=== PATIENT | female | born 1995 | race Caucasian/White ===

== ENCOUNTER 2022-04-25 21:00 | Inpatient (IN) ==
--- NOTE | 2022-04-25 21:09 | Emergency Department Note ---
Impression & Plan Right peroneal nerve palsy, Back pain, Foot drop, right ED Provider Note NAME: LORA WALDEN AGE: 26 SEX: F : 1995 ARRIVES VIA: Walk-In INFORMANT: Patient, ED PROVIDER(S): Bryant Whalen MD Chief Complaint: Back pain, leg pain HPI: Patient presents due to concern for back pain along with some decree s ensation of the right lower extremity. Patient states the back pain she woke up with. Patient denies any chest pains shortness of breath nausea or vomiting. The patient did try to take some Andrei's which is some sort of magnesium supplement which initially helps but not with most recent dose. The patient denies any heavy lifting twisting or turning within the last 48 hours. The patient denies any bowel or bladder incontinence or retention. Patient denies any trauma to the back. The patient states that due to some right of the midline of the lumbar discomfort. Patient denies any alcohol or tobacco use. ROS: See HPI for pertinent positives and negatives. A total of 10 systems were revi ewed and otherwise negative. Past medical history: See below Surgical history: See below Social history: See below Physical Exam: GENERAL: NAD, wearing a mask, 6, non-toxic. EYE EXAM: Normal conjunctiva. PERRL, no anisocoria and EOM's grossly intact w/o pain. NECK: Supple, no nuchal rigidity, no adenopathy, non-tender. No signs of meningismus. LUNGS: Clear to auscultation. Normal chest wall mechanics. HEART: NSR, no MRG. ABDOMEN: Abdomen soft, non-tender, normo-active bowel sounds, no masses, no rebound or guarding. BACK: No CVA TTP. SKIN: No rashes and no bruising. UPPER EXTREMITIES: Upper extremities are grossly normal. LOWER EXTREMITIES: Grossly normal, no edema. NEURO EXAM: A&O x3, cranial nerves II-XII grossly intact, normal speech, moves all 4 extremities on command w/o issue with symmetric lower extremity strength. Mild decreased sensation over the lateral aspect of the right lower extremity distal to the right knee. Differential diagnoses: Musculoskeletal, disc herniation, fracture, metastatic disease, cord compression, discitis, sciatica, cauda equina, infection, aortic disease, renal colic, gastrointestinal, as well as other pathologies. Course: Patient was seen and evaluated the bedside. Full history physical exam was performed. Imaging Studies: See Below Cardiac monitoring: An order was placed for continuous cardiac monitoring. The monitor shows a rate of 85 with sinus rhythm. MDM: Patient was seen due to concern for back pain as well as decree sensation of the right lower extremity. The patient does have some decreased sensation from the knee down. Believe this is more related to sciatica symptoms. Do not believe the patient requires CT of the head at this time. Blood work was obtained along with lumbar x-ray. The patient was treated symptomatically. Patient's lumbar x-ray does not show any obvious concerning findings. Lower shows a white count of 11 with normal H&H and platelet count. The patient's kidney function is unremarkable. Upon reassessment the patient did appear to have a foot drop. Patient's reflexes are symmetric patellar and the patient I do believe has an exam consistent with peroneal nerve palsy. MRI of the lumbar spine was ordered as a precaution given the patient's pain and leg weakness. Patient signed out to Dr. Chery pending MR lumbar spine. Past Med/Surg History Medical History Obesity Surgical History No pertinent past surgical history Social History Smoking Status: Never smoker Hx Alcohol Use: No Hx Substance Use: No Preferred Language: Hungarian Communication Ability: Effective Oil Dispatcher Required: No Beliefs That Will Affect Care: None Current Living Situation: Significant Other Feels Safe at Home: Yes Assistive Devices: None Allergies Allergies Allergy/AdvReac Type Severity Reaction Status Date / Time No Known Allergies Allergy Verified 04/26/22 14:58 Home Meds Home Medications Medication Instructions Recorded Confirmed cetirizine 10 mg tablet (Zyrtec) 10 mg PO DAILY 04/25/22 04/25/22 multivitamin 1 tab PO DAILY 04/25/22 04/25/22 norethindrone 1 mg-ethinyl 1 tab PO DAILY 04/25/22 04/25/22 estradiol 20 mcg (21)-iron 75 mg (7) tablet (Fela Fe 12/21 (28)) omeprazole 10 mg capsule,delayed 10 mg PO DAILY 04/25/22 04/25/22 release Previous Rx's Medication Instructions Recorded lidocaine 5 % topical patch 1 patch TOP DAILY PRN #15 ea 04/25/22 prednisone 20 mg tablet See Rx Instructions .ROUTE 04/25/22 .COMPLEX 4 Days #6 tab Results & Data (ED) Vital Signs Vital Signs - 24 hr 04/25/22 21:03 04/25/22 21:20 04/26/22 03:37 Pulse Rate 96 H 72 Pulse Rate [Finger] 87 Pulse Rhythm Regular Pulse Rhythm [Finger] Regular Pulse Strength [Finger] Normal Respiratory Rate 18 21 16 Respiratory Effort / Characteristics Non-Labored Spontaneous Respiratory Depth Normal Respiratory Pattern Regular Blood Pressure 176/118 H Blood Pressure [Right Arm] 174/95 H Blood Pressure Mean 137 Blood Pressure Mean [Right Arm] 121 Blood Pressure Position [Right Arm] Semi-fowlers Pulse Oximetry 95 98 98 Oxygen Delivery Method Room Air Room Air Sepsis Recent Fever Within 48 Hours No Sepsis New/Unexplained Change in Mental Status No Sepsis Action Taken by Nursing No Action Required Home Medications Current Medication List: was personally reviewed by me Laboratory Data Attestation: I reviewed the patient's lab results. Result diagrams: 04/25/22 21:50 04/25/22 21:50 Lab Results 04/25/22 04/25/22 04/25/22 Range/Units 21:50 21:50 21:50 WBC 11.85 H (4.8-10.8) K/uL RBC 4.96 (4.2-5.4) M/uL Hgb 14.4 (12.0-16.0) g/dL Hct 41.3 (37-47) % MCV 83.3 (80-100) fL MCH 29.0 (25-34) pg MCHC 34.9 (32-36) g/dL RDW Std Deviation 37.2 (36.4-46.3) fL RDW Coeff of Jerri 12.3 (11.5-14.5) % Plt Count 355 (130-400) K/uL MPV 10.3 (7.4-10.4) fL Immature Gran % (Auto) 0.3 % Neut % (Auto) 70.5 % Lymph % (Auto) 21.6 % Fisher % (Auto) 6.4 % Eos % (Auto) 0.8 % Baso % (Auto) 0.4 % Neut # (Auto) 8.36 H (1.4-6.5) K/uL Lymph # (Auto) 2.56 (1.2-3.4) K/uL Fisher # (Auto) 0.76 H (0.11-0.59) K/uL Eos # (Auto) 0.09 (0-0.5) K/uL Baso # (Auto) 0.05 (0-0.2) K/uL Immature Gran # (Auto) 0.03 H (0.00-0.02) K/uL Sodium 136 (136-145) mmol/L Potassium 3.6 (3.5-5.1) mmol/L Chloride 100 (98-107) mmol/L Carbon Dioxide 24 (21-32) mmol/L Anion Gap 12 H (3-11) BUN 10 (6-23) mg/dl Creatinine 0.67 (0.6-1.2) mg/dl Est Cr Clr Drug Dosing Not Reportable Est GFR ( Amer) 141.6 ml/min Est GFR (Non-Af Amer) 122.2 ml/min BUN/Creatinine Ratio 14.9 (10-20) Glucose 116 H (70-99(Fasting)) mg/dl Calcium 9.7 (8.5-10.1) mg/dl 25-OH Vitamin D Total 42.0 (30-100) ng/ml SARS-CoV-2, RNA, NAAT (NEGATIVE) 04/26/22 Range/Units 03:35 WBC (4.8-10.8) K/uL RBC (4.2-5.4) M/uL Hgb (12.0-16.0) g/dL Hct (37-47) % MCV (80-100) fL MCH (25-34) pg MCHC (32-36) g/dL RDW Std Deviation (36.4-46.3) fL RDW Coeff of Jerri (11.5-14.5) % Plt Count (130-400) K/uL MPV (7.4-10.4) fL Immature Gran % (Auto) % Neut % (Auto) % Lymph % (Auto) % Fisher % (Auto) % Eos % (Auto) % Baso % (Auto) % Neut # (Auto) (1.4-6.5) K/uL Lymph # (Auto) (1.2-3.4) K/uL Fisher # (Auto) (0.11-0.59) K/uL Eos # (Auto) (0-0.5) K/uL Baso # (Auto) (0-0.2) K/uL Immature Gran # (Auto) (0.00-0.02) K/uL Sodium (136-145) mmol/L Potassium (3.5-5.1) mmol/L Chloride (98-107) mmol/L Carbon Dioxide (21-32) mmol/L Anion Gap (3-11) BUN (6-23) mg/dl Creatinine (0.6-1.2) mg/dl Est Cr Clr Drug Dosing Est GFR ( Amer) ml/min Est GFR (Non-Af Amer) ml/min BUN/Creatinine Ratio (10-20) Glucose (70-99(Fasting)) mg/dl Calcium (8.5-10.1) mg/dl 25-OH Vitamin D Total (30-100) ng/ml SARS-CoV-2, RNA, NAAT NEGATIVE (NEGATIVE) Administered Medications Cetirizine HCl (Cetirizine Hcl 10 Mg Tablet) 10 mg PO DAILY [facility] Stop: 05/26/22 08:59 Last Admin: 04/26/22 08:27 Dose: 10 mg Documented by: [id number] Fentanyl Citrate (Fentanyl Citrate 100 Mcg/2 Ml Vial) 25 mcg IV Q5M PRN PRN Reason: PACU Use Only-Pain Stop: 04/26/22 23:04 Last Admin: 04/26/22 17:37 Dose: 25 mcg Documented by: [id number] Admin: 04/26/22 17:32 Dose: 25 mcg Documented by: [id number] Ondansetron HCl (Ondansetron Inj 2 Mg/Ml 2 Ml Vial) 4 mg IV ONCE PRN PRN Reason: PACU Use Only-Nausea/Vomiting Stop: 04/26/22 23:04 Last Admin: 04/26/22 17:11 Dose: 4 mg Documented by: [id number] Pantoprazole Sodium (Pantoprazole 40 Mg Tab) 40 mg PO DAILY CHRISTINE Stop: 05/26/22 08:59 Last Admin: 04/26/22 08:27 Dose: 40 mg Documented by: [id number] Discontinued Medications Acetaminophen (Acetaminophen 325 Mg Tab) 650 mg PO Q6H PRN PRN Reason: pain/fever Stop: 05/26/22 03:58 Last Admin: 04/26/22 12:43 Dose: 650 mg Documented by: [id number] Bupivacaine HCl/Epinephrine Bitart (Bupivacaine/Epinephrine 0.25% 1:200,000 30 Ml Vial) Confirm Administered Dose 30 ml .ROUTE .STK-MED ONE Stop: 04/26/22 14:54 Last Admin: 04/26/22 15:58 Dose: 20 ml Documented by: [id number] Cefazolin Sodium (Cefazolin 330 Mg/Ml 1 Gm Vial) Confirm Administered Dose 990 mg .ROUTE .STK-MED ONE Stop: 04/26/22 14:54 Last Admin: 04/26/22 16:25 Dose: 990 mg Documented by: [id number] Cefazolin Sodium (Cefazolin 2,000 Mg/15 Ml Iv Push) Confirm Administered Dose 2,000 mg IV .STK-MED ONE Stop: 04/26/22 15:23 Last Admin: 04/26/22 15:59 Dose: Not Given Documented by: [id number] Hydralazine HCl (Hydralazine Hcl 25 Mg Tab) 25 mg PO NOW STA Stop: 04/26/22 04:01 Last Admin: 04/26/22 04:19 Dose: 25 mg Documented by: [id number] Cefazolin Sodium (Ancef 2000mg) 2,000 mg in 15 mls @ 3.75 mls/min IV PREOP ONE Stop: 04/26/22 15:22 Last Admin: 04/26/22 15:24 Dose: 3.75 mls/min Documented by: [id number] Ketorolac Tromethamine (Ketorolac Tromethamine 15 Mg/Ml Vial) 10 mg IV ONE STA Stop: 04/25/22 21:21 Last Admin: 04/25/22 22:01 Dose: 10 mg Documented by: [id number] Methylprednisolone (Methylprednisolone 125 Mg/2 Ml Vial) 60 mg IV NOW STA Stop: 04/25/22 21:21 Last Admin: 04/25/22 22:02 Dose: 60 mg Documented by: [id number] Miscellaneous (Fela Chand 12/21 (28) - Order Awaiting Action) 1 ea N/A QS CHRISTINE Stop: 05/26/22 07:59 Last Admin: 04/26/22 11:14 Dose: Not Given Documented by: [id number] Miscellaneous ( Floseal Hemostatic Matrix 10ml) 10 ml TOP ONCE ONE Stop: 04/26/22 16:00 Last Admin: 04/26/22 16:35 Dose: Not Given Documented by: [id number] Morphine Sulfate (Morphine Sulfate 4 Mg/Ml 1 Ml Carp\Vial) 2 mg IV NOW STA Stop: 04/25/22 21:21 Last Admin: 04/25/22 22:02 Dose: 2 mg Documented by: [id number] Ondansetron HCl (Ondansetron Inj 2 Mg/Ml 2 Ml Vial) 4 mg IV NOW STA Stop: 04/25/22 21:21 Last Admin: 04/25/22 22:01 Dose: 4 mg Documented by: [id number] Imaging Data Radiologist's Impression: Lumbar Spine X-Ray 04/25/22 21:20 XR lumbar spine 2-3V CLINICAL HISTORY: back pain. COMPARISON STUDY: No previous studies for comparison. TECHNIQUE: 3 Views of the lumbar spine FINDINGS: Bones: There is no evidence for fracture or malalignment. The heights of the vertebral bodies are maintained. There are no lytic or blastic lesions present. Disc spaces: There is mild disc space narrowing from L3 through S1. Facet joints: Mild hypertrophic facet joint disease is seen at the lower 2 disc space levels. Soft tissues: The paraspinal soft tissues are within normal limits. IMPRESSION: 1. No acute abnormality. 2. Mild degenerative disc and degenerative facet joint disease for a patient of this age. ACT 112: Negative or not required by law. Electronically signed by: Mykel Coker M.D. 04/26/2022 7:03 AM Lumbar Spine MRI 04/25/22 22:46 MR lumbar spine wo con CLINICAL HISTORY: Back pain radiating down the right leg. Numbness in the right leg and foot.. COMPARISON: Standard radiographs from 04/25/2022 TECHNIQUE: Multiplanar multisequence images of the Lumbar Spine were performed without contrast. FINDINGS: There is no evidence for vertebral body fracture. The heights of the vertebral bodies are maintained. The vertebral bodies are in anatomic alignment. Homogeneous marrow signal is seen without evidence for marrow edema or marrow replacement. T12-L1: The disc space height is maintained. There are no focal disc pr otrusions or extrusions identified. The thecal sac and epidural fat are maintained. The neural foramen are patent bilaterally. There is no evidence for nerve root encroachment. The facet joints are within normal limits. L1-2: The disc space height is maintained. There are no focal disc protrusions or extrusions identified. The thecal sac and epidural fat are maintained. The neural foramen are patent bilaterally. There is no evidence for nerve root encroachment. The facet joints are within normal limits. L2-3: The disc space height is maintained. There are no focal disc protrusions or extrusions identified. The thecal sac and epidural fat are maintained. The neural foramen are patent bilaterally. There is no evidence for nerve root encroachment. The facet joints are within normal limits. L3-4: There is mild disc space narrowing and disc desiccation with a 5 to 6 mm right paracentral disc protrusion/herniation present . This encroaches upon the thecal sac anterolaterally to the right and upon the right L4 nerve root as it enters the lateral recess. No foraminal encroachment is identified. No other evidence for nerve root impingement is seen. The facet joints are within normal limits. L4-5: There is moderate disc space narrowing and disc desiccation with a large central disc protrusion/herniation present measuring 9 to 10 mm. This produces marked encroachment upon the thecal sac anteriorly. No foraminal encroachment is seen. There is no evidence for additional nerve root encroachment. There is mild hypertrophic facet joint disease present bilaterally. L5-S1: There is mild disc space narrowing and disc desiccation with a 7 to 8 mm left paracentral disc protrusion/herniation present. Central annular tear is present. This encroaches upon the thecal sac anterolaterally to the left and upon the left S1 nerve root as it enters lateral recess. Mild left foraminal encroachment is present with no nerve root impingement identified within the foramen. Mild hypertrophic facet joint disease present bilaterally. IMPRESSION: 1. Right paracentral disc protrusion/herniation at L3-4. 2. Large central disc protrusion/herniation at L4-5 producing marked compression upon the thecal sac. 3. Left paracentral disc protrusion/herniation at L5-S1. ACT 112: Negative or not required by law. Electronically signed by: Mykel Coker M.D. 04/26/2022 8:30 AM Discharge Plan Visit Data Chief Complaint: Leg Injury/Pain Stated Complaint: BACK PAIN, LEG PAIN, LEGS ARE NUMB ED Provider: Jennifer Chery Discharge Problem: Right peroneal nerve palsy, Back pain, Foot drop, right Patient Disposition: Admitted As Inpatient Condition: Good Discharge Instructions Interventions: ED Discharge Assessment Last Done: 04/26/22 04:37 Discharge Problem: Back pain Qualifiers: Back pain location: low back pain Chronicity: acute Back pain laterality: right Sciatica presence: with sciatica Sciatica laterality: sciatica of right side Qu alified Code(s): M54.41 - Lumbago with sciatica, right side
[2022-04-25] MEDS ORDERED: ONDANSETRON INJ 2 MG/ML 2 ML VIAL IV STA (21:20)
[2022-04-25] MEDS ORDERED: KETOROLAC TROMETHAMINE 15 MG/ML VIAL IV STA (21:20)
[2022-04-25] MEDS ORDERED: MoRPHine SULFATE 4 MG/ML 1 ML CARP\\VIAL IV STA (21:20)
[2022-04-25] MEDS ORDERED: methylPREDNISolone 125 MG/2 ML VIAL IV STA (21:20)
[2022-04-25 22:04] LABS: Basophils # (auto) 0.05 K/uL (0-0.2); Basophils % (auto) 0.4 %; Eosinophils # (auto) 0.09 K/uL (0-0.5); Eosinophils % (auto) 0.8 %; Hematocrit (blood only) 41.3 % (37-47); Hemoglobin 14.4 g/dL (12.0-16.0); Immature Granulocytes # (auto) 0.03 K/uL (0.00-0.02); Immature Granulocytes % (auto) 0.3 %; Lymphocytes # (auto) 2.56 K/uL (1.2-3.4); Lymphocytes % (auto) 21.6 %; Mean Corpuscular Hgb Conc 34.9 g/dL (32-36); Mean Corpuscular Volume 83.3 fL (80-100); Mean Platelet Volume 10.3 fL (7.4-10.4); Monocytes # (auto) 0.76 K/uL (0.11-0.59); Monocytes % (auto) 6.4 %; Neutrophils # (auto) 8.36 K/uL (1.4-6.5); Neutrophils % (auto) 70.5 %; Platelet Count 355 K/uL (130-400); RDW Coefficient of Variation 12.3 % (11.5-14.5); RDW Standard Deviation 37.2 fL (36.4-46.3); Red Blood Count 4.96 M/uL (4.2-5.4); White Blood Count 11.85 K/uL (4.8-10.8)
[2022-04-25 22:17] LABS: Anion Gap 12 (3-11); BUN Creatinine Ratio 14.9 (10-20); Blood Urea Nitrogen 10 mg/dl (6-23); Calcium 9.7 mg/dl (8.5-10.1); Carbon Dioxide 24 mmol/L (21-32); Chloride 100 mmol/L (98-107); Est GFR (African American) 141.6 ml/min; Est GFR (Non-African American) 122.2 ml/min; Glucose 116 mg/dl (70-99(Fasting)); Potassium 3.6 mmol/L (3.5-5.1); Sodium 136 mmol/L (136-145)
--- NOTE | 2022-04-26 00:20 | Emergency Department Note ---
ED Visit Note This case was signed out to me at change of shift awaiting lumbar MRI reading. Exams: MRI L SPINE Contrast: Accession Numbers: [id number] Referring Physician: REFERRED SELF Preliminary Findings Only See Final Report For Complete Findings MRI L SPINE : L4-L5 central disc extrusion causes SEVERE canal stenosis and may compress the cauda equina roots. Disc desiccation, height loss, and endplate degenerative changes. L3-L4 central to right subarticular disc extrusion causes [id number] right lateral recess stenosis and mild canal stenosis. Disc desiccation and height loss. L5-S1, central to left subarticular disc extrusion superimposed on broad-based disc bulge causes mild to moderate left lateral recess stenosis, mild canal stenosis, and mild bilateral foraminal stenosis. Disc desiccation and height loss. I reviewed the results of the MRI with the patient and her fianc. I evaluated the patient and she has obvious right foot drop and weakness at the ankle. I confirmed the history with the patient. She had sudden onset of right-sided low back pain Saturday. The pain then radiated down the right leg throu ghout the day on Saturday. She became more concerned on Saturday evening when she noticed numbness of the lateral aspect of the right lower extremity and then had weakness in the right foot and difficulty with ambulation. The patient has no evidence of cauda equina syndrome. I discussed the case with Nolberto Iqbal PA-C to confirm that she could be evaluated by spinal surgery in the morning here at [facility]. I discussed the case with the [facility] Hospitalist and they will evaluate for further management as an inpatient. The patient has already received IV josiah roids. . : Back pain Qualifiers: Back pain location: low back pain Chronicity: acute Back pain laterality: right Sciatica presence: with sciatica Sciatica laterality: sciatica of right side Qualified Code(s): M54.41 - Lumbago with sciatica, right side
--- NOTE | 2022-04-26 03:30 | History & Physical Report ---
Date of Service April 26, 2022 Assessment & Plan (1) Lumbar disc herniation with radiculopathy: Plan: Ayala Shafer is a 26yo female who presented to [facility] ED on 04/26 for acute-onset right-sided low back pain radiating down right leg, numbness of lateral aspect of RLE, and weakness in right foot. Lumbar Disc Herniation with Radiculopathy Findings per MRI L-spine - with disc extrusion and associated severe stenosis at L3-L4, L4-L5 and L5-S1. No known injury or trauma. Thankfully no urine/stool symptoms or other concerning features of Cauda Equina syndrome. Patient may have had unstable/abnormal spinal anatomy that placed her at increased risk for this extensive damage, without trauma. - consulted Ortho spine (Dr. Caballero) - appreciate recs - s/p Solu-Medrol 60mg IV x1 - will defer on further steroids to primary team and Ortho - PRN pain regimen: Tylenol 650mg PO Q6H; Toradol 10mg IV Q6H (x1 day) - maintain NPO status in case of surgery later today - will check vitamin D level Elevated Blood Pressure BP 170s/90s-110s in the ED. Patient denies previous h/o HTN and reports usually being normotensive. Suspect due to pain. - will give Hydralazine 25mg PO x1 - monitor closely while hospitalized - may need chronic BP medication if remains >140/90 even when pain is controlled FEN/GI: NPO DVT Prophylaxis: SCDs, no chemoppx due to possible surgery Code Status: full code Disposition: med/surg History of Present Illness Chief Complaint: back pain Primary Care Provider: NO PCP Ayala Shafer is a 26yo female who presented to [facility] ED on 04/26 for acute- onset right-sided low back pain radiating down right leg, numbness of lateral aspect of RLE, and weakness in right foot. Symptoms started suddenly yesterday morning. She denies any injury, trauma or heavy lifting. Denies urinary/stool incontinence or retention. Denies recent fever/chills or any symptoms of illness. In the ED the patient was hypertensive to 176/118. CBC/BMP WNL. MRI lumbar spine showing L4-L5 central disc extrusion causing severe canal stenosis that may compress the cauda equina roots. Disc desiccation, height loss, and endplate degenerative changes. L3-L4 central to right subarticular disc extrusion causes [id number] right lateral recess stenosis and mild canal stenosis. Disc desiccation and height loss. L5-S1, central to left subarticular disc extrusion superimposed on broad-based disc bulge causes mild to moderate left lateral recess stenosis, mild canal stenosis, and mild bilateral foraminal stenosis. Disc desiccation and height loss. ED provider spoke with spinal surgery who will see the patient in the morning. Patient received Methylprednisone 60mg IV x1 as well as Toradol 10mg IV and Morphine 2mg IV. Also received Zofran 4mg IV x1. Allergies Allergy/AdvReac Type Severity Reaction Status Date / Time No Known Allergies Allergy Verified 04/26/22 14:58 Home Medications Medication Instructions Recorded Confirmed Type cetirizine 10 mg tablet (Zyrtec) 10 mg PO DAILY 04/25/22 04/25/22 History lidocaine 5 % topical patch 1 patch TOP DAILY PRN #15 ea 04/25/22 Rx multivitamin 1 tab PO DAILY 04/25/22 04/25/22 History norethindrone 1 mg-ethinyl 1 tab PO DAILY 04/25/22 04/25/22 History estradiol 20 mcg (21)-iron 75 mg (7) tablet (Fela Fe 12/21 (28)) omeprazole 10 mg capsule,delayed 10 mg PO DAILY 04/25/22 04/25/22 History release prednisone 20 mg tablet See Rx Instructions .ROUTE 04/25/22 Rx .COMPLEX 4 Days #6 tab Past Med/Surg History Medical History Obesity Surgical History No pertinent past surgical history Social History Smoking Status: Never smoker Hx Alcohol Use: No Hx Substance Use: No Preferred Language: Tristanian Communication Ability: Effective Pin Pusher Required: No Beliefs That Will Affect Care: None Current Living Situation: Significant Other Feels Safe at Home: Yes Assistive Devices: None Review of Systems Review of Systems: All systems reviewed & are unremarkable except as noted in HPI & below Physical Exam Physical Exam: General: A&Ox3. NAD. Cooperative. HEENT: Atraumatic, normocephalic. Pulm: CTAB A&P. -wheezes, -rales, -rhonchi. Symmetrical chest rise. No increase work of breathing. No respiratory distress. Cardiac: RRR, -mrg. Radial pulses intact and symmetrical. Abdominal: soft, non-tender, non-distended, BS x 4 Skin: warm, dry, no rash Neuro: 4/5 strength in right toes, 5/5 strength on left toes. 5/5 strength in remainder of LEs. Decreased sensation on outer right thigh as well as over right great toe. 2+ patellar reflexes bilaterally. Positive leg raise test bilaterally. Results & Data Results & Data ([facility]) Vital Signs (Past 12 Hours) Vital Signs Pulse Resp BP Pulse Ox 04/25/22 21:20 72 21 98 04/25/22 21:03 96 H 18 176/118 H 95 Code Status & VTE Plan Code Status full code - discussed with patient Supervising Physician Co-Signing Physician Notes Attending addendum: I have physically seen this patient, have supervised the medical residents activities, and agree with the H&P unless as otherwise noted. Assessment and Plan: L4-5 disc herniation/severe canal stenosis/intractable low back pain- L3-L4 with mild to moderate right lateral recess stenosis L5-S1 with mild to moderate left lateral recess stenosis Given Solu-Medrol 60 mg IV in ED prior to MRI results Pain regimen: Tylenol and Toradol as noted N.p.o. after midnight Consult orthopedic spine surgery Dr. Caballero Elevated blood pressure- Secondary to pain Has had normal pressure in the outpatient setting As needed hydralazine Remaining orders and notations as noted Resident Activity Tracking Resident Involvement: Resident Care Provided Care Provided: [facility]
[2022-04-26] MEDS ORDERED: KETOROLAC TROMETHAMINE 15 MG/ML VIAL IV PRN (03:59)
[2022-04-26] MEDS ORDERED: ACETAMINOPHEN 325 MG TAB PO PRN (03:59)
[2022-04-26] MEDS ORDERED: hydrALAZINE HCL 25 MG TAB PO STA (04:00)
--- NOTE | 2022-04-26 07:04 | XRay Report ---
XR lumbar spine 2-3V CLINICAL HISTORY: back pain. COMPARISON STUDY: No previous studies for comparison. TECHNIQUE: 3 Views of the lumbar spine FINDINGS: Bones: There is no evidence for fracture or malalignment. The heights of the vertebral bodies are dale ntained. There are no lytic or blastic lesions present. Disc spaces: There is mild disc space narrowing from L3 through S1. Facet joints: Mild hypertrophic facet joint disease is seen at the lower 2 disc space levels. Soft tissues: The paraspinal soft tissues are within normal limits. IMPRESSION: 1. No acute abnormality. 2. Mild degenerative disc and degenerative facet joint disease for a patient of this age. ACT 112: Negative or not required by law. Electronically signed by: Mykel Coker M.D. 04/26/2022 7:03 AM
[2022-04-26] MEDS: CETIRIZINE HCL 10 MG TABLET PO SCH (08:27)
[2022-04-26] MEDS: PANTOprazole 40 MG TAB PO SCH (08:27)
--- NOTE | 2022-04-26 08:31 | Magnetic Resonance Report ---
MR lumbar spine wo con CLINICAL HISTORY: Back pain radiating down the right leg. Numbness in the right leg and foot.. COMPARISON: Standard radiographs from 04/25/2022 TECHNIQUE: Multiplanar multisequence images of the Lumbar Spine were performed without contrast. FINDINGS: There is no evidence for vertebral body fracture. The heights of the vertebral bodies are maintained. The vertebral bodies are in anatomic alignment. Homogeneous marrow signal is seen without evidence f or marrow edema or marrow replacement. T12-L1: The disc space height is maintained. There are no focal disc protrusions or extrusions ident ified. The thecal sac and epidural fat are maintained. The neural foramen are patent bilaterally. Th ere is no evidence for nerve root encroachment. The facet joints are within normal limits. L1-2: The disc space height is maintained. There are no focal disc protrusions or extrusions identi fied. The thecal sac and epidural fat are maintained. The neural foramen are patent bilaterally. The re is no evidence for nerve root encroachment. The facet joints are within normal limits. L2-3: The disc space height is maintained. There are no focal disc protrusions or extrusions identi fied. The thecal sac and epidural fat are maintained. The neural foramen are patent bilaterally. The re is no evidence for nerve root encroachment. The facet joints are within normal limits. L3-4: There is mild disc space narrowing and disc desiccation with a 5 to 6 mm right paracentral dis c protrusion/herniation present . This encroaches upon the thecal sac anterolaterally to the right and upon the right L4 nerve root as it enters the lateral recess. No foraminal encroachment is identi fied. No other evidence for nerve root impingement is seen. The facet joints are within normal limits . L4-5: There is moderate disc space narrowing and disc desiccation with a large central disc protrus ion/herniation present measuring 9 to 10 mm. This produces marked encroachment upon the thecal sac a nteriorly. No foraminal encroachment is seen. There is no evidence for additional nerve root encroach ment. There is mild hypertrophic facet joint disease present bilaterally. L5-S1: There is mild disc space narrowing and disc desiccation with a 7 to 8 mm left paracentral di sc protrusion/herniation present. Central annular tear is present. This encroaches upon the thecal s ac anterolaterally to the left and upon the left S1 nerve root as it enters lateral recess. Mild left foraminal encroachment is present with no nerve root impingement identified within the foramen. Mild hypertrophic facet joint disease present bilaterally. IMPRESSION: 1. Right paracentral disc protrusion/herniation at L3-4. 2. Large central disc protrusion/herniation at L4-5 producing marked compression upon the thecal sac. 3. Left paracentral disc protrusion/herniation at L5-S1. ACT 112: Negative or not required by law. Electronically signed by: Mykel Coker M.D. 04/26/2022 8:30 AM
--- NOTE | 2022-04-26 09:01 | Consultation ---
Date of Consultation April 26, 2022 Assessment & Plan (1) Lumbar disc herniation with radiculopathy: Dr. Caballero will review patient and films and final surgical decision making. Current plan is for surgical intervention today. Surgery would require posterior lumbar decompression with possible instrumented fusion at the L4-5 level. Pros, cons and alternatives have been reviewed with the patient. Hope is obvious improvement of her right lower extremity pain, numbness and weakness. We have reviewed her adjacent level degenerative changes both at the L3-4 and L5 - [id number] which make her prone to continued issues in the future with these adjacent levels. They do not need to be addressed during surgery at this point in time though. History of Present Illness Reason for Consultation: Right lower extremity pain, numbness, weakness Attending Physician: Alonzo Lucia DO History of Present Illness Is a pleasant 26-year-old female who has had an onset of back pain starting 2 days ago. Yesterday her symptoms progressed along the right lower extremity and on the right buttock, posterior thigh, posterior c detention to her foot. Now the foot is numb beginning yesterday. Also notes weakness affecting her right lower extremity. Left leg is asymptomatic. She was using [id number] Andrei's back and body for pain control. Denies bowel bladder changes. Denies perineal numbness. She has been ambling independently. 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 Denies any prior history of lower back issues. Allergies Allergy/AdvReac Type Severity Reaction Status Date / Time No Known Allergies Allergy Verified 04/26/22 14:58 Home Medications Medication Instructions Recorded Confirmed Type cetirizine 10 mg tablet (Zyrtec) 10 mg PO DAILY 04/25/22 04/25/22 History lidocaine 5 % topical patch 1 patch TOP DAILY PRN #15 ea 04/25/22 Rx multivitamin 1 tab PO DAILY 04/25/22 04/25/22 History norethindrone 1 mg-ethinyl 1 tab PO DAILY 04/25/22 04/25/22 History estradiol 20 mcg (21)-iron 75 mg (7) tablet (Fela Chand 12/21 (28)) omeprazole 10 mg capsule,delayed 10 mg PO DAILY 04/25/22 04/25/22 History release prednisone 20 mg tablet See Rx Instructions .ROUTE 04/25/22 Rx .COMPLEX 4 Days #6 tab oxycodone 5 mg tablet 5 mg PO Q6H PRN #20 tab 04/27/22 Rx tramadol 50 mg tablet 50 mg PO Q6H PRN #20 tab 04/27/22 Rx Patient History Medical History Obesity Surgical History No pertinent past surgical history Social History Smoking Status: Never smoker Hx Alcohol Use: No Hx Substance Use: No Preferred Language: Urdu Communication Ability: Effective Back Line Cook Required: No Beliefs That Will Affect Care: None Current Living Situation: Significant Other Feels Safe at Home: Yes Assistive Devices: None Review of Systems Review of Systems: All systems reviewed & are unremarkable except as noted in HPI & below Physical Exam Physical Exam: She is lying in bed in no acute distress Alert and oriented x3 Positive straight leg raise on the right, negative contralateral straight leg raise She has a 3 to 3+/5 right EHL, 4/5 right dorsiflexion, breakaway weakness over the right quadricep. Strength is 5/5 left lower extremity Constitutional: well developed Eyes: normal visual maldonado by confrontation ENMT: external ear and nose normal, oropharynx normal Neck: normal visual inspection Respiratory: normal respiratory effort Cardiovascular: Extremities: normal capillary refill Gastrointestinal (Abdomen): Inspection/Auscultation: abdomen normal to inspection Musculoskeletal: Extremities: extremities normal to inspection and + abnormal strength Skin: no rashes, warm and dry Neurologic: normal touch/pain/proprioception, moves all extremities and + focal motor deficit Psychiatric: A+Ox3, euthymic affect Eye Contact: good eye contact Speech: normal rate/rhythm/volume of speech Results & Data ([facility]) Vital Signs (Past 12 Hours) Vital Signs Temp Pulse Pulse Resp BP BP Pulse Ox 04/26/22 07:43 36.8 C 87 18 137/84 97 04/26/22 05:42 152/101 H 04/26/22 05:00 36.7 C 86 16 166/124 H 97 04/26/22 04:37 87 16 174/95 H 98 04/26/22 03:37 87 16 174/95 H 98 04/25/22 21:20 72 21 98 05/25/22 21:03 96 H 18 176/118 H 95 Diagnostic Findings [place], [place] [phone] Magnetic Resonance Report Patient:LORA WALDEN Admit Date:04/26/22 MR#:[id number] Address1:[address] Acct ID:[id number] Address2:[address] Date:1995 [facility] Zip:[place] [address] Age:26 Location:3N Sex:F Room/Bed:[facility] Att Phy:Alonzo Lucia D.O. Diagnosis:HERNIATED LUMBAR DISC Kortney Phy:PCP,NO Service Date:04/25/22 Fam Phy: Interpreting Phy:Mykel Coker MDAdmit Phy:Darell Gee MD Ordering Phy:Bryant Whalen MD cc: ~ MR lumbar spine wo con CLINICAL HISTORY: Back pain radiating down the right leg. Numbness in the right leg and foot.. COMPARISON: Standard radiographs from 04/25/2022 TECHNIQUE: Multiplanar multisequence images of the Lumbar Spine were performed without contrast. FINDINGS: There is no evidence for vertebral body fracture. The heights of the vertebral bodies are maintained. The vertebral bodies are in anatomic alignment. Homogeneous marrow signal is seen without evidence for marrow edema or marrow replacement. T12-L1: The disc space height is maintained. There are no focal disc protrusions or extrusions identified. The thecal sac and epidural fat are maintained. The neural foramen are patent bilaterally. There is no evidence for nerve root encroachment. The facet joints are within normal limits. L1-2: The disc space height is maintained. There are no focal disc protrusions or extrusions identified. The thecal sac and epidural fat are maintained. The neural foramen are patent bilaterally. There is no evidence for nerve root encroachment. The facet joints are within normal limits. L2-3: The disc space height is maintained. There are no focal disc protrusions or extrusions identified. The thecal sac and epidural fat are maintained. The neural foramen are patent bilaterally. There is no evidence for nerve root encroachment. The facet joints are within normal limits. L3-4: There is mild disc space narrowing and disc desiccation with a 5 to 6 mm right paracentral disc protrusion/herniation present . This encroaches upon the thecal sac anterolaterally to the right and upon the right L4 nerve root as it enters the lateral recess. No foraminal encroachment is identified. No other evidence for nerve root impingement is seen. The facet joints are within normal limits. L4-5: There is moderate disc space narrowing and disc desiccation with a large central disc protrusion/herniation present measuring 9 to 10 mm. This produces marked encroachment upon the thecal sac anteriorly. No foraminal encroachment is seen. There is no evidence for additional nerve root encroachment. There is mild hypertrophic facet joint disease present bilaterally. L5-S1: There is mild disc space narrowing and disc desiccation with a 7 to 8 mm left paracentral disc protrusion/herniation present. Central annular tear is present. This encroaches upon the thecal sac anterolaterally to the left and upon the left S1 nerve root as it enters lateral recess. Mild left foraminal encroachment is present with no nerve root impingement identified within the foramen. Mild hypertrophic facet joint disease present bilaterally. IMPRESSION: 1. Right paracentral disc protrusion/herniation at L3-4. 2. Large central disc protrusion/herniation at L4-5 producing marked compression upon the thecal sac. 3. Left paracentral disc protrusion/herniation at L5-S1. ACT 112: Negative or not required by law. Electronically signed by: Mykel Coker M.D. 04/26/2022 8:30 AM Dictated:04/26/22 0819 Transcribed: 04/26/22 0819
[2022-04-26 13:17] LABS: Pregnancy Test, Urine Negative (Negative)
[2022-04-26] MEDS ORDERED: DEXAMETHASONE SOD INJ 4 MG/ML VIAL ONE (14:27)
[2022-04-26] MEDS ORDERED: MIDAZOLAM HCL 1 MG/ML 2ML VIAL ONE (14:27)
[2022-04-26] MEDS ORDERED: LIDOCAINE 2% 2 ML VIAL/AMP(20MG/ML) INFIL ONE (14:27)
[2022-04-26] MEDS ORDERED: ONDANSETRON INJ 2 MG/ML 2 ML VIAL ONE (14:27)
[2022-04-26] MEDS ORDERED: ROCURONIUM BROMIDE 10 MG/ML 5 ML VIAL IV ONE (14:27)
[2022-04-26] MEDS ORDERED: PROPOFOL IV EMULSION 10 MG/ML 20 ML VIAL IV ONE ×2 (14:27→15:56)
[2022-04-26] MEDS ORDERED: fentaNYL citrate 100 MCG/2 ML VIAL ONE (14:27)
--- NOTE | 2022-04-26 14:28 | Hospitalist Progress Note ---
Date of Service April 26, 2022 Assessment & Plan (1) Lumbar disc herniation with radiculopathy: Plan: Lumbar Disc Herniation with Radiculopathy - Findings per MRI L-spine: disc herniation at L3-L4, L4-L5 and L5-S1 - No known injury or trauma. Normal calcium and 25-OH VitaD - Consider rheumatology to r/o connective tissue disease etiology - No signs of cauda equina syndrome - s/p Solu-Medrol 60mg IV x1 - PRN pain regimen: Tylenol 650mg PO Q6H; Toradol 10mg IV Q6H - L4-5 decompression scheduled today by Dr. Caballero and was NPO FEN/GI: NPO DVT Prophylaxis: SCDs, no chemoppx due to possible surgery Code Status: full code Disposition: med/surg Admission and Anticipated Discharge Date Admission Date: April 26, 2022 Supervising Physician Co-Signing Physician Notes I personally examined the patient and verified all kee points of history and exam, discussed case, and agree with decision making with Laurent Fishman MS2 feeling OK saw preop - pain controlled just numb at the time. vitals noted nad heent nc at mmm breathing unlabored no accessory muscles good effort skin no rashes no pallor or icterus acute disc herniation with acute lumbar radiculopathy resulting in pain and numbness as well as motor weakness -for OR today otherwise as above Subjective Ayala does not have any back pain today but still has the right foot numbness and weakness. She does have a family history of early joint replacements but no aneurysms, CHF, muscular dystrophy, spina bifida, or connective tissue disease. Review of Systems Constitutional: no fever and no sweats Musculoskeletal: no back pain and no joint pain Neurologic: + localized weakness (R foot), + numbness (R foot) and + radiating pain (posterior RLE) no bowel or bladder incontinence, no saddle anesthesia Physical Exam Constitutional: no acute distress Musculoskeletal: No tenderness to palpation of the lumbar spine and lower back. Neurologic: Strength is decreased at R ankle. 5/5 L ankle and b/l knee and hip. Sensation to light touch is focally diminished from R lateral calf to ankle, R great toe, R sole. Unsteady gait. Results & Data Results & Data ([facility]) Vital Signs (Past 12 Hours) Vital Signs Temp Pulse Pulse Resp BP BP Pulse Ox 04/26/22 07:43 36.8 C 87 18 137/84 97 04/26/22 05:42 152/101 H 04/26/22 05:00 36.7 C 86 16 166/124 H 97 04/26/22 04:37 87 16 174/95 H 98 04/26/22 03:37 87 16 174/95 H 98 Laboratory Results 04/26/22 04/26/22 04/25/22 Range/Units 13:02 03:35 21:50 25-OH Vitamin D Total 42.0 (30-100) ng/ml Urine Test Negative (Negative) SARS-CoV-2, RNA, NAAT NEGATIVE (NEGATIVE) 04/25/22 04/25/22 Range/Units 21:50 21:50 WBC 11.85 H (4.8-10.8) K/uL RBC 4.96 (4.2-5.4) M/uL Hgb 14.4 (12.0-16.0) g/dL Hct 41.3 (37-47) % MCV 83.3 (80-100) fL MCH 29.0 (25-34) pg MCHC 34.9 (32-36) g/dL RDW Std Deviation 37.2 (36.4-46.3) fL RDW Coeff of Jerri 12.3 (11.5-14.5) % Plt Count 355 (130-400) K/uL MPV 10.3 (7.4-10.4) fL Immature Gran % (Auto) 0.3 % Neut % (Auto) 70.5 % Lymph % (Auto) 21.6 % Butler % (Auto) 6.4 % Eos % (Auto) 0.8 % Baso % (Auto) 0.4 % Neut # (Auto) 8.36 H (1.4-6.5) K/uL Lymph # (Auto) 2.56 (1.2-3.4) K/uL Butler # (Auto) 0.76 H (0.11-0.59) K/uL Eos # (Auto) 0.09 (0-0.5) K/uL Baso # (Auto) 0.05 (0-0.2) K/uL Immature Gran # (Auto) 0.03 H (0.00-0.02) K/uL Sodium 136 (136-145) mmol/L Potassium 3.6 (3.5-5.1) mmol/L Chloride 100 (98-107) mmol/L Carbon Dioxide 24 (21-32) mmol/L Anion Gap 12 H (3-11) BUN 10 (6-23) mg/dl Creatinine 0.67 (0.6-1.2) mg/dl Est GFR ( Amer) 141.6 ml/min Est GFR (Non-Af Amer) 122.2 ml/min BUN/Creatinine Ratio 14.9 (10-20) Glucose 116 H (70-99(Fasting)) mg/dl Calcium 9.7 (8.5-10.1) mg/dl Diagnostic Findings MRI LSP: 1. Right paracentral disc protrusion/herniation at L3-4. 2. Large central disc protrusion/herniation at L4-5 producing marked compression upon the thecal sac. 3. Left paracentral disc protrusion/herniation at L5-S1. XR LSP: 1. No acute abnormality. 2. Mild degenerative disc and degenerative facet joint disease for a patient of this age.
--- NOTE | 2022-04-26 14:43 | Anesthesiology Consultation ---
Date of Service April 26, 2022 Assessment & Plan (1) Encounter for pre-operative examination: Chart Review Chart Review: Acceptable Risk for Surgery and Patient NOT seen in Pre Admission Testing Consults Requested none History Surgery Operation Date: 04/26/22 08:20 Proposed Procedures p L4-L5 Decompression - Bg Caballero DO Height/Weight Height: 5 ft 9 in Weight: 116.1 kg Allergies Allergy/AdvReac Type Severity Reaction Status Date / Time No Known Allergies Allergy Verified 04/25/22 21:41 Medications Home Medications Medication Instructions Recorded Confirmed Last Taken cetirizine 10 mg tablet (Zyrtec) 10 mg PO DAILY 04/25/22 04/25/22 04/25/22 lidocaine 5 % topical patch 1 patch TOP DAILY PRN #15 ea 04/25/22 Unknown multivitamin 1 tab PO DAILY 04/25/22 04/25/22 04/25/22 norethindrone 1 mg-ethinyl 1 tab PO DAILY 04/25/22 04/25/22 04/25/22 estradiol 20 mcg (21)-iron 75 mg (7) tablet (Fela Chand 12/21 ()) omeprazole 10 mg capsule,delayed 10 mg PO DAILY 04/25/22 04/25/22 04/25/22 release prednisone 20 mg tablet See Rx Instructions .ROUTE 04/25/22 Unknown .COMPLEX 4 Days #6 tab Active Medications Generic Name Dose Route Start Last Admin Trade Name Freq PRN Reason Stop Dose Admin Acetaminophen 650 mg 04/26/22 03:59 04/26/22 12:43 Acetaminophen 325 Mg Tab PO 05/26/22 03:58 650 mg Q6H PRN Administration pain/fever Cetirizine HCl 10 mg 04/26/22 09:00 04/26/22 08:27 Cetirizine Hcl 10 Mg Tablet PO 05/26/22 08:59 10 mg DAILY CHRISTINE Administration Miscellaneous 1 ea 04/26/22 08:00 04/26/22 11:14 Fela Chand 12/21 () - Order Awaiting Action N/A 05/26/22 07:59 Not Given QS CHRISTINE Pantoprazole Sodium 40 mg 04/26/22 09:00 04/26/22 08:27 Pantoprazole 40 Mg Tab PO 05/26/22 08:59 40 mg DAILY CHRISTINE Administration Past Medical History Medical History Obesity Past Surgical History Surgical History No pertinent past surgical history Social History Smoking Status: Never smoker Hx Alcohol Use: No Hx Substance Use: No Physical Exam Vital Signs Last Vital Signs Temp 36.8 C 04/26/22 07:43 Pulse 87 04/26/22 07:43 Resp 18 04/26/22 07:43 BP 137/84 04/26/22 07:43 Pulse Ox 97 04/26/22 07:43 Testing Laboratory Results 04/25/22 21:50 04/25/22 21:50 Urine Test Negative (Negative) 04/26/22 13:02 04/26/22 13:02 Urine Test Negative
[2022-04-26] MEDS ORDERED: ceFAZolin 330 MG/ML 1 GM VIAL ONE (14:53)
[2022-04-26] MEDS ORDERED: BUPIVACAINE/EPINEPHRINE 0.25% 1:200,000 30 ML VIAL ONE (14:53)
[2022-04-26] MEDS ORDERED: PHENYLEPHRINE 100MCG/ML 5ML SYR IV PRN (15:04)
[2022-04-26] MEDS ORDERED: HYDROmorphone INJ 1 MG/ML SYRINGE IV PRN ×2 (15:04→18:08)
[2022-04-26] MEDS ORDERED: LABETALOL HCL IV 5 MG/ML 20ML IV PRN (15:04)
[2022-04-26] MEDS ORDERED: MEPERIDINE HCL 25 MG/ML CARP/VIAL IV PRN (15:04)
[2022-04-26] MEDS ORDERED: ATROPINE SULFATE 0.1 MG/ML 10ML SYR IV PRN (15:04)
[2022-04-26] MEDS ORDERED: ePHEDrine sulfate 50 MG/ML AMP IV PRN (15:04)
[2022-04-26] MEDS ORDERED: ONDANSETRON INJ 2 MG/ML 2 ML VIAL IV PRN ×2 (15:04→18:08)
--- NOTE | 2022-04-26 15:13 | History & Physical Bridge Note ---
Date of Service April 26, 2022 History & Physical Bridge Note I have examined the patient, reviewed the History & Physical and in the interval since the performance of the History & Physical I have noted the following changes of clinical significance: no changes noted Decompression L4-L5
[2022-04-26] MEDS ORDERED: ceFAZolin 2000MG 2,000 MG/15 ML SYR IV ONE (15:19)
[2022-04-26] MEDS ORDERED: ceFAZolin 2,000 MG/15 ML IV PUSH IV ONE (15:22)
[2022-04-26] MEDS ORDERED: REMIFENTANIL HCL 1 MG VIAL ONE (15:56)
[2022-04-26] MEDS ORDERED: FLOSEAL HEMOSTATIC MATRIX 10ML TOP ONE (15:59)
[2022-04-26] MEDS ORDERED: KETAMINE 50 MG/5 ML SYRINGE ONE (16:01)
[2022-04-26] MEDS ORDERED: PHENYLEPHRINE 100MCG/ML 5ML SYR ONE (16:14)
[2022-04-26] MEDS ORDERED: GLYCOPYRROLATE 0.2 MG/ML VIAL ONE (16:27)
[2022-04-26] MEDS ORDERED: NEOSTIGMINE METHYLSULFATE 1 MG/ML 10ML VIAL ONE (16:27)
--- NOTE | 2022-04-26 16:40 | Operative Report ---
Post Operative Report Pre & Post Diagnosis Operation Date: 04/26/22 08:20 Pre-Op Diagnosis: Lumbar disc herniation with radiculopathy L4-L5 Post-Op Diagnosis: Lumbar disc herniation with radiculopathy L4-L5 I identified the patient and participated in the time-out.: Yes Procedure Operation Date: 04/26/22 08:20 Actual Procedures #1 lumbar decompression L4-L5 with removal of free disc herniation. Surgeon Bg Caballero, DO Cement Conveyor Operator None Estimated Blood Loss 10 Findings Consistent with Post-Op Diagnosis Specimens None Indications This is a 26-year-old female who presents severe right leg pain and inability to ambulate secondary to right leg weakness Imaging demonstrates massive disc herniation L4-L5 with a free fragment and caudal migration. Subsequently she is here for urgent decompression fusion. Description of Procedure Patient was met with identified informed consent obtained. Patient was then taken to the operative suite underwent patient placed in a prone position the Cristobal table atop the Jayy frame. All bony prominences well-padded eyes inspected to ensure no external pressure placed upon them. This point the lumbar spine was prepped and draped in normal sterile fashion. The assistance of fluoroscopy identified the L4-L5 disc space and a midline incision was created overlying his region. Sharp dissection with assistance of Bovie cautery was formed down to and exposing the interlaminar space at L4-5 bilaterally. Several 10 retractors placed. Then performed a midline decompression including bilateral medial facetectomies to adequately and safely approach the disc fragments which was creating severe canal compromise. I was able to identify the traversing roots come up underneath him and removed several massive fragments of free disc material. Area was then explored several times which were all loose fragments addressed. Was then copiously irrigated and 15 round MYRANDA inserted. It was then closed with subcutaneous Vicryl and 4 Monocryl for final skin closure. Steri-Strip sterile dressings placed. Patient will continue PACU stable condition. I attest to the content of the Intraoperative Record and any orders documented therein. Any exceptions are noted below.
--- NOTE | 2022-04-26 16:51 | Fluoroscopy Report ---
FL lumbar spine 2-3V CLINICAL HISTORY: L4-L5 DECOMPRESSION AND FUSION WITH INTERBODY TECHNIQUE: 2 views were obtained with the C-arm in the OR with the above procedure. Total fluoroscopy time was 6.9 seconds. Total skin dose was 5.2 mGy. Comparison: None available at the time of this dictation. FINDINGS/IMPRESSION: Intraoperative images were obtained of L4-L5 decompression. Please correlate with intraoperative fluoroscopy and operative report. ACT 112: Negative or not required by law. Electronically signed by: Grover Alvarenga M.D. 04/26/2022 4:50 PM
[2022-04-26] MEDS: fentaNYL citrate 100 MCG/2 ML VIAL IV PRN ×2 (17:32→17:37)
--- NOTE | 2022-04-26 17:46 | Anesthesiology Progress Note ---
Date of Service April 26, 2022 Anesthesia Post Procedure Vital Signs Vital Signs: Temp Pulse Pulse Pulse Resp BP BP 04/26/22 17:40 61 21 131/80 04/26/22 17:30 36.7 C 61 21 132/85 04/26/22 17:20 65 17 141/82 H 04/26/22 17:10 68 16 140/88 04/26/22 17:00 61 19 130/84 04/26/22 16:50 36.4 C L 60 22 139/81 04/26/22 14:51 36.9 C 82 20 153/86 H 04/26/22 07:43 36.8 C 87 18 137/84 04/26/22 05:42 152/101 H 04/26/22 05:00 36.7 C 86 16 166/124 H 04/26/22 04:37 87 16 174/95 H 04/26/22 03:37 87 16 174/95 H 04/25/22 21:20 72 21 04/25/22 21:03 96 H 18 176/118 H Pulse Ox 04/26/22 17:40 93 04/26/22 17:30 94 04/26/22 17:20 93 04/26/22 17:10 96 04/26/22 17:00 97 04/26/22 16:50 96 04/26/22 14:51 97 04/26/22 07:43 97 04/26/22 05:42 04/26/22 05:00 97 04/26/22 04:37 98 04/26/22 03:37 98 04/25/22 21:20 98 04/25/22 21:03 95 Pain Intensity Back: Pain Intensity: 1 Transfer of Care Handoff Completed per policy Notes Mental Status: alert / awake / arousable and participated in evaluation Patient Amnestic to Procedure: Yes Nausea / Vomiting: adequately controlled Pain: adequately controlled Airway Patency, RR, SpO2: stable & adequate BP & HR: stable & adequate Hydration State: stable & adequate Anesthetic Complications: no major complications apparent and Pt Satisfied with anesthetic care
[2022-04-26] MEDS ORDERED: SOD PHOSPHATE/SOD BIPHOSPHATE ENEMA 132 ML BTL PR PRN (18:08)
[2022-04-26] MEDS ORDERED: bisacodyL 10 MG SUPP PR PRN (18:08)
[2022-04-26] MEDS ORDERED: hydrOXYzine HCl 25 MG TAB PO PRN (18:08)
[2022-04-26] MEDS ORDERED: traMADol HCL 50 MG TABLET PO PRN (18:08)
[2022-04-26] MEDS ORDERED: HYDROmorphone INJ 0.5 MG/0.5 ML SYR IV PRN (18:08)
[2022-04-26] MEDS ORDERED: ACETAMINOPHEN 1,000 MG/100 ML VIAL IV PRN (18:08)
[2022-04-26] MEDS ORDERED: FAMOTIDINE 20 MG TAB PO PRN (18:08)
[2022-04-26] MEDS ORDERED: ALUMINUM/MAGNESIUM SUSP 30 ML UDC PO PRN (18:08)
[2022-04-26] MEDS ORDERED: ONDANSETRON 4 MG OD TAB PO PRN (18:08)
[2022-04-26] MEDS ORDERED: METOCLOPRAMIDE HCL INJ 5 MG/ML 2 ML VIAL IV PRN (18:08)
[2022-04-26] MEDS ORDERED: LORazepam 0.5 MG TAB PO PRN (18:08)
[2022-04-26] MEDS ORDERED: LORazepam 2 MG/1 ML VIAL IV PRN (18:08)
[2022-04-26] MEDS ORDERED: DO NOT ADMINISTER FLU VACCINE PRN (18:08)
[2022-04-26] MEDS ORDERED: MAGNESIUM HYDROXIDE SUSP 30 ML UDC PO PRN (18:08)
[2022-04-26] MEDS ORDERED: NALOXONE HCL 0.4 MG/1 ML VIAL/CARP IV PRN (18:08)
[2022-04-26] MEDS ORDERED: oxyCODONE HCL IR 5 MG TAB (IMMEDIATE RELEASE) PO PRN (18:08)
[2022-04-26] MEDS ORDERED: DO NOT ADMINISTER PNEUMOCOCCAL VACCINE PRN (18:08)
[2022-04-26] MEDS ORDERED: ACETAMINOPHEN 500 MG TAB PO PRN (18:08)
[2022-04-26] MEDS ORDERED: PROMETHAZINE HCL 12.5 MG in SODIUM CHLORIDE 0.9% 50 ML IV PRN (18:08)
[2022-04-26] MEDS ORDERED: diphenhydrAMINE Capsule 25 MG CAP PO PRN (18:08)
[2022-04-26] MEDS: LACTATED RINGER'S 1,000 ML IV SCH (19:41)
--- NOTE | 2022-04-26 20:08 | Billing Data ---
Date of Service April 26, 2022 Coding Level of Care Code 64532 Initial Inpt Care Lvl 2
[2022-04-26] MEDS ORDERED: DOCUSATE SODIUM/SENNA 50/8.6MG TAB PO SCH (21:00)
[2022-04-26] MEDS: ceFAZolin 2000MG 2,000 MG/15 ML SYR IV SCH (23:31)
[2022-04-27] MEDS: LACTATED RINGER'S 1,000 ML IV SCH (02:26)
[2022-04-27] MEDS: POLYETHYLENE (MIRALAX) 17 GM PACK PO SCH ×2 (05:45→13:46)
[2022-04-27] MEDS: ceFAZolin 2000MG 2,000 MG/15 ML SYR IV SCH (05:49)
[2022-04-27] MEDS: CETIRIZINE HCL 10 MG TABLET PO SCH (08:52)
[2022-04-27] MEDS: PANTOprazole 40 MG TAB PO SCH (08:52)
[2022-04-27] MEDS ORDERED: dexAMETHasone 6 MG in SYRINGE 0 ML IV SCH (09:00)
--- NOTE | 2022-04-27 10:21 | Hospitalist Progress Note ---
Date of Service April 27, 2022 Assessment & Plan (1) Lumbar disc herniation with radiculopathy: Plan: Lumbar Disc Herniation with Radiculopathy - Findings per MRI L-spine: disc herniation at L3-L4, L4-L5 and L5-S1 - No known injury or trauma. Normal calcium and 25-OH VitaD - Consider rheumatology to r/o connective tissue disease etiology - No signs of cauda equina syndrome - POD #1 s/p L4-[address] Caballero - s/p Solu-Medrol 60mg IV x1. Dexamethasone 6 mg IV daily x3 days per ortho - PRN pain regimen per ortho FEN/GI: Regular DVT Prophylaxis: Ambulation Code Status: Full code Disposition: Med/surg Admission and Anticipated Discharge Date Admission Date: April 26, 2022 Subjective No acute events overnight. Ayala has 2/10 pain in her back that worsens when rolling over to get out of bed. Her pain is manageable without any pain medication. Her numbness has improved and feels more steady with ambulation. She tolerated breakfast without nausea or vomiting. She has been able to void and pass flatulence. She had an episode of diarrhea. Review of Systems Constitutional: no fever and no sweats Cardiovascular: no chest pain and no dyspnea Gastrointestinal: no abdominal pain, no nausea and no vomiting Neurologic: + localized weakness (R foot) and + numbness (R foot); no radiating pain no bowel or bladder incontinence, no saddle anesthesia Physical Exam Constitutional: no acute distress Respiratory: normal respiratory effort, lungs clear to auscultation Cardiovascular: Rate/Rhythm: regular rate Heart Sounds: normal S1 and normal S2 Gastrointestinal (Abdomen): normal bowel sounds, soft, nontender, no hepatosplenomegaly Skin: Dressing on back is clean and dry. MYRANDA drain has serosanguineous drainage. Neurologic: Strength is 4/5 at R ankle. 5/5 L ankle and b/l knee and hip. Sensation to light touch is focally diminished from R lateral calf to ankle, R great toe, R dorsum of foot. 2+ patellar reflexes b/l. Results & Data Results & Data ([facility]) Vital Signs (Past 12 Hours) Vital Signs Temp Pulse Resp BP Pulse Ox 04/27/22 05:33 36.6 C 83 18 156/84 H 95 04/27/22 03:40 36.6 C 85 18 135/83 94 05/27/22 00:05 36.6 C 89 18 142/85 H 93
--- NOTE | 2022-04-27 11:56 | Discharge Summary ---
Date of Service April 27, 2022 Admission HPI Per Admitting Provider Ayala Shafer is a 26yo female who presented to [facility] ED on 04/26 for acute-onset right-sided low back pain radiating down right leg, numbness of lateral aspect of RLE, and weakness in right foot. Symptoms started suddenly yesterday morning. She denies any injury, trauma or heavy lifting. Denies urinary/stool incontinence or retention. Denies recent fever/chills or any symptoms of illness. In the ED the patient was hypertensive to 176/118. CBC/BMP WNL. MRI lumbar spine showing L4-L5 central disc extrusion causing severe canal stenosis that may compress the cauda equina roots. Disc desiccation, height loss, and endplate degenerative changes. L3-L4 central to right subarticular disc extrusion causes ahso-xh-cqonyhse right lateral recess stenosis and mild canal stenosis. Disc desiccation and height loss. L5-S1, central to left subarticular disc extrusion superimposed on broad-based disc bulge causes mild to moderate left lateral recess stenosis, mild canal stenosis, and mild bilateral foraminal stenosis. D isc desiccation and height loss. ED provider spoke with spinal surgery who will see the patient in the morning. Patient received Methylprednisone 60mg IV x1 as well as Toradol 10mg IV and Morphine 2mg IV. Also received Zofran 4mg IV x1. Principal Diagnosis Lumbar disc herniation with motor deficit Discharge Data Allergies Allergy/AdvReac Type Severity Reaction Status Date / Time No Known Allergies Allergy Verified 04/26/22 14:58 Consultations 04/26/22 03:10 ED Decision to Admit Stat 04/26/22 03:59 Consult Orthopedic Surgery Routine Procedures Performed Operation Date: 04/26/22 08:20 Actual Procedures p Lumbar decompression L4-L5 with removal of free disc herniation. - Bg Caballero DO Ordered Studies 04/25/22 22:46 MR lumbar spine wo con Stat 04/26/22 14:13 FL lumbar spine 2-3V Routine Hospital Course (1) Lumbar disc herniation with radiculopathy: Patient was admitted with severe radiculopathy and progressive motor deficit. She underwent urgent lumbar decompression and removal of disc condition L4-5. She tolerated this procedure well was taken to the orthopedic for postoperative. Postop day 1 she had marked resolution of her radiculopathy pain but significant strength deficit. It is modestly improved. She is comfortable though and moving recently about the room. At this point we will allow her to discharge home. We will follow-up in the office in the next few weeks to assess her healing and progress. Total Time Total Time Spent Total Time Spent (In Minutes): 20 minutes Discharge Plan Discharge Items Patient Disposition: Home - Self-Care Reason For Visit: HERNIATED LUMBAR DISC Discharge Diagnosis: Lumbar disc condition with radiculopathy and motor deficit Condition on Discharge: Good Activity: As commented below Non-emergency contact: Primary Care Provider Call non-emergency contact if: you have any medication questions Follow-up/Referrals: Byron Alba III, CRNP [Primary Care Provider] - 05/08/22 9:20 am (Primary care with [facility] follow up. You will also have an appointment at this office on 07/16/22 at 2:40pm for continued care and to become formally established as a patient. If you need to cancel either of these appointments, please call the office.) Diet: Regular Addtl Attending Provider Instructions: ACTIVITY RECOMMENDATIONS: SELF CARE INSTRUCTIONS AFTER A LAMINECTOMY 1. No prolonged sitting (less than 30 minutes for the first 3 weeks after surgery). 2. No bending, lifting more than 5 pounds, or twisting (roll like a log when turning in bed). 3. You may shower 3 days after surgery if no drainage from wound. Thoroughly dry wound. Do not soak in the tub. 4. Please walk as much as you can for exercise. Gradually increase the distance that you walk as your endurance increases. 5. You may drive in 7-10 days if you are comfortable and no longer requiring pain medications. SPECIAL CARE INSTRUCTIONS: VERY IMPORTANT TO READ AND REVIEW A. Your surgical incision has been closed with a cosmetic suture under the skin that will dissolve in about 6 weeks. In 14 days, you can use a pair of clean scissors and cut the suture that is left outside of the skin at the ends of your incision. B. Complications are uncommon, but please contact us if you have any signs or symptoms of: 1. wound infection (fever higher than 102.5 degrees F, redness, separation of wound, drainage, or increasing pain from the incision) 2. blood clots in legs (pain, swelling, redness and warmth in legs) 3. urinary tract infection (fever higher than 102.5 degrees, burning upon urination or increased frequency of urination) 4. nerve problems (inability to walk on your toes or heels, numbness, loss of bowel or bladder control) 5. any other symptoms that concern you. C. Please call the office at if you have any concerns or questions about your operation or recovery. MANAGING PAIN AFTER SPINAL SURGERY 1. Narcotic medication is intended for short-term use and will be provided for surgical pain. Surgical pain usually lasts for a period of 4-6 weeks. Narcotic medication includes Percocet, Vicodin, Darvocet, Tylenol #3 or Lortab. 2. Longer-term pain is more appropriately treated with non-narcotic medication such as Tylenol ES. 3. Muscle spasm is not appropriately treated with narcotics. Muscle relaxers such as Soma, Flexeril or Skelaxin can be used along with Tylenol ES. 4. Remember that we all live with some "aches and pains". This is not unusual or uncommon after an injury or as we get older. 5. We will provide appropriate medication within the normal guidelines of their prescribed use. We will also be very cautious and aware of potential abuse and extended duration of patients' medication needs. 6. Please allow 2-3 days to process refills. Prescriptions will not be mailed but must be picked up at the office. FOLLOW UP VISIT: Keep your scheduled follow-up appointment. Any questions, please call the office at . Pending Studies at Discharge: No Stand-Alone Forms: [facility] [employer], Smoking Cessation Medications and DC Order Prescriptions: New prednisone 20 mg tablet See Rx Instructions .ROUTE .COMPLEX 4 Days Qty: 6 RF: 0 lidocaine 5 % adhesive patch,medicated 1 patch TOP DAILY PRN (Reason: pain) Qty: 15 RF: 0 tramadol 50 mg tablet 50 mg PO Q6H PRN (Reason: pain, moderate) Qty: 20 RF: 0 oxycodone 5 mg tablet 5 mg PO Q6H PRN (Reason: pain, severe) Qty: 20 RF: 0 Continued multivitamin Tablet 1 tab PO DAILY RF: 0 cetirizine [Zyrtec] 10 mg Tablet 10 mg PO DAILY RF: 0 norethindrone-e.estradiol-iron [Fela Chand 12/21 (28)] 1 mg-20 mcg (21)/75 mg (7) tablet 1 tab PO DAILY RF: 0 omeprazole 10 mg Capsule,Delayed Release(Dr/Ec) 10 mg PO DAILY RF: 0 Discharge Orders: Discharge Order (Routine); Ordered 04/27/22 Ordered By: Bg Caballero Admission Data Admit Date/Time: 04/26/22 03:56 Attending Provider: Alonzo Lucia Admit Provider: Darell Gee Primary Care Provider: Byron Alba III Other Providers: Carloz Brewster ; Bg Caballero
--- NOTE | 2022-04-27 17:03 | Hospitalist Progress Note ---
Date of Service April 27, 2022 Assessment & Plan (1) Lumbar disc herniation with radiculopathy: Plan: Ayala Shafer is a 26yo female who presented to [facility] ED on 04/26 for acute-onset right-sided low back pain radiating down right leg, numbness of lateral aspect of RLE, and weakness in right foot. Lumbar Disc Herniation with Radiculopathy -now post op, doing well, stable for home -discussed non-narcotic pain control w APAP, ibuprofen -discussed concerning that she had such DDD at such a young age - nothing overtly appearing as a connective tissue disorder, and ortho did not note as such intraop - unlikely to be the case and premature disease might be related to BMI 37.8, but asked for referral to rheumatology to brian from a separate perspective as well to ensure no evidence of rheumatologic/connective tissue disease driving premature back/spinal disease safe/stable for home Admission and Anticipated Discharge Date Admission Date: April 26, 2022 Subjective feeling good feels up to going home Review of Systems Review of Systems: All systems reviewed & are unremarkable except as noted in HPI & below Physical Exam Physical Exam: gen aao pleasant nad heent nc at mmm breathing unlabored no accessory muscles good effort skin no rashes no pallor or icterus neuro no focal deficits Results & Data Results & Data ([facility]) Vital Signs (Past 12 Hours) Vital Signs Temp Pulse Resp BP Pulse Ox 04/27/22 14:14 98.1 F 67 18 130/85 97 04/27/22 11:00 98.1 F 67 18 130/85 97 04/27/22 05:33 97.9 F 83 18 156/84 H 95 PG Care Time/CCT Total # of Minutes Spent Total Time Spent with Patient: Total time spent is greater than 50% in coordination of care (as documented) at patient's floor/unit and/or counseling patient: Coding Level of Care Code 91682 Subseq Hosp Care Lvl 1 Diagnoses Lumbar disc herniation with radiculopathy M51.16
== END 2022-04-27 14:52 | disposition home or self-care (01) | DRG 520 ==
LOC: ED 21:00 → SUATTDRO 04-26 03:56 → 3N 04-26 03:56

== ENCOUNTER 2022-11-14 18:31 | Observation (INO) ==
[2022-11-14 19:09] LABS: Basophils # (auto) 0.09 K/uL (0-0.2); Basophils % (auto) 0.9 %; Eosinophils # (auto) 0.14 K/uL (0-0.50); Eosinophils % (auto) 1.4 %; Hematocrit (blood only) 41.2 % (34.1-44.9); Hemoglobin 14.3 g/dl (12.0-16.0); Immature Granulocytes # (auto) 0.02 K/uL (0.00-0.02); Immature Granulocytes % (auto) 0.2 %; Lymphocytes # (auto) 2.55 K/uL (1.2-3.4); Mean Corpuscular Hemoglobin 29.7 pg (25.0-34.0); Mean Corpuscular Hgb Conc 34.7 g/dL (32.0-36.0); Mean Corpuscular Volume 85.5 fL (80.0-100.0); Mean Platelet Volume 10.4 fL (9.4-12.3); Monocytes # (auto) 0.59 K/uL (0.24-0.82); Neutrophils # (auto) 6.42 K/uL (1.4-6.5); Neutrophils % (auto) 65.5 %; Platelet Count 403 K/uL (130-400); RDW Coefficient of Variation 11.7 % (11.5-14.5); RDW Standard Deviation 36.8 fL (36.4-46.3); Red Blood Count 4.82 M/uL (3.93-5.22); White Blood Count 9.81 K/ul (4.8-10.8)
[2022-11-14 19:26] LABS: Partial Thromboplastin Ratio 1.1; Partial Thromboplastin Time 30.2 Seconds (21.0-31.0); Prothrombin Time 10.5 Seconds (9.0-12.0)
[2022-11-14 19:29] LABS: Albumin Level 4.4 gm/dl (3.4-5.0); BUN Creatinine Ratio 12.1 (10-20); Calcium 9.4 mg/dl (8.5-10.1); Creatinine Clr Calc Pharmacy 168.8 ml/min; Est GFR (African American) 141.3 ml/min; Est GFR (Non-African American) 121.9 ml/min; Globulin 4.6 gm/dl (2.5-4.0); Potassium 3.9 mmol/L (3.5-5.1)
[2022-11-14 19:35] LABS: Troponin I High Sensitivity 3.1 pg/ml (0-14)
--- NOTE | 2022-11-14 19:52 | Emergency Department Note ---
Impression & Plan Choledocholithiasis, Transaminitis, Abdominal pain ED Provider Note NAME: LORA WALDEN AGE: 27 SEX: F : 1995 ARRIVES VIA: Walk-In INFORMANT: Patient ED PROVIDER(S): Alonzo Stacy DO CHIEF COMPLAINT: chest pain HPI: Patient is a 27-year-old female who presents to the ER for substernal chest pain. She notes this has been going on for the past 2 weeks. It is worse after eating. Denies any shortness of breath but admits to pain with taking deep br eath in the epigastric region. Does have nausea and vomiting. No dysuria, urgency, or frequency. Feels similar to when she had her previous cholecystectomy. No cough or congestion. No other exacerbating or remitting factors. Is on control. Is not sexually active. Pain is currently an 8 out of 10 and sharp and stabbing in nature. When it gets severe she does feel dizzy. ROS: See above HPI for pertinent positives & negatives. A total of 10 systems reviewed and were otherwise negative. PAST MEDICAL HISTORY:See Below PAST SURGICAL HISTORY:See Below FAMILY HISTORY:See Below SOCIAL HISTORY:See Below HOME MEDICATIONS:See Below ALLERGIES:See Below VITALS:See Below PHYSICAL EXAMINATION: GENERAL: Sitting up in bed, alert, well appearing, well nourished, no distress, non-toxic EYE EXAM: normal conjunctiva. OROPHARYNX: no exudate, no erythema, lips, buccal mucosa, and tongue normal and mucous membranes are moist NECK: supple, no nuchal rigidity, no adenopathy, non-tender LUNGS: Clear to auscultation. Normal chest wall mechanics HEART: no murmurs, S1 normal and S2 normal ABDOMEN: abdomen soft, tender in the epigastric region, normo-active bowel sounds, no masses, no rebound or guarding. UPPER EXTREMITIES: upper extremities are grossly normal. LOWER EXTREMITIES: No pitting edema. NEURO EXAM: Normal sensorium, cranial nerves II-XII grossly intact, normal speech, no gross weakness of arms, no gross weakness of legs. MEDICAL DECISION MAKING: Patient is a 27-year-old female who presents the ER for chest pain. Upon arrival IV established blood work was obtained. She is tender in the epigastric region. Pain is worse after eating. Labs show no significant leukocytosis or anemia. INR unremarkable. BMP was unremarkable. T bili at 3. LFTs were in the 300s to 400s. Alk phos 240. Troponin negative. Lipase normal. Urine does have nitrites likely secondary to the bilirubin. No other signs of infection. COVID was negative. CT abdomen pelvis shows choledocholithiasis with a dilated CBD and a stone in the duct. Patient declined pain medications. She admitted for further work-up Dr. Moran Triage Nursing notes reviewed. Limited review of prior medical records performed Vital Signs: reviewed and remarkable for HTN Differential diagnosis: Differential diagnoses includes but is not limited to gastritis, peptic ulcer disease, GERD, gallbladder disease, pancreatitis, small bowel obstruction, acute coronary syndrome, pericarditis, ischemic bowel, irritable bowel disease, irritable bowel syndrome, appendicitis, diverticulitis, malignancy, hernia, urinary tract infection, torsion, /ectopic (if female), perforation, trauma, infectious. ER treatment provided: See below Diagnostics interpreted by me: ECG: Sinus rhythm rate 74 Normal axis No PVCs QTC 439 Cardiac Monitoring: An order was placed for continuous cardiac monitoring. The monitor shows a rate of 80 with sinus rhythm. Laboratory studies: As stated above and show below. Imaging studies: CT abdomen pelvis as described above Consultation(s): Discussed with the hospitalist as described above Procedures: none Critical Care: None Past Med/Surg History Medical History (Updated 11/14/22 @ 22:58 by Alonzo Stacy DO) Asthma Obesity Surgical History (Updated 11/07/22 @ 15:19 by XIOMARA Bearden III) S/P cholecystectomy At age 17 S/P discectomy for herniated nucleus pulposus Family History (Updated 11/07/22 @ 15:23 by XIOMARA Bearden III) Mother Hypothyroidism Fibromyalgia Migraine Eczema Diabetes Grandfather (Maternal) Gout Agent orange exposure Hypothyroidism Psoriasis Myocardial infarction Grandmother (Maternal) Hyperthyroidism Migraine Father Gout Hypertension Grandfather (Paternal) Heart disease Diabetes Myocardial infarction Grandmother (Paternal) Stroke Breast cancer Denies family history of Ovarian cancer Prostate cancer Colorectal cancer Social History Smoking Status: Never smoker Second Hand Exposure: No; Hx Alcohol Use: No Hx Substance Use: No Preferred Language: [place] Communication Ability: Effective Visual Impairment: No Limitations Hearing Ability: Normal County Bailiff Required: No Beliefs That Will Affect Care: None marital status: Single Current Living Situation: Significant Other current occupational status: employed Feels Safe at Home: Yes Childhood Exposure to Second-Hand Smoke: No Diet Comment: regular Dental Care, Regularly: No Physical Activity Frequency: 1-2 Times per Week Seatbelt Use: always Sunscreen Use: Yes Assistive Devices: Glasses Allergies Allergies Allergy/AdvReac Type Severity Reaction Status Date / Time No Known Allergies Allergy Verified 11/14/22 21:05 Home Meds Home Medications Medication Instructions Recorded Confirmed cetirizine 10 mg tablet (Zyrtec) 10 mg PO DAILY 04/25/22 11/14/22 multivitamin 1 tab PO DAILY 04/25/22 11/14/22 norethindrone 1 mg-ethinyl 1 tab PO DAILY 04/25/22 11/14/22 estradiol 20 mcg (21)-iron 75 mg (7) tablet (Fela Fe 12/21 (28)) omeprazole 10 mg capsule,delayed 10 mg PO DAILY 04/25/22 11/14/22 release albuterol sulfate 90 mcg/actuation 2 inh inhalation Q6H PRN Shortness 11/07/22 11/14/22 breath activated powder inhaler Of Breath sodium citrate 230 mg chewable 230 mg PO DIRECTED PRN 11/07/22 11/14/22 tablet (Nauzene Upset NAUSEA/UPSET STOMACH Stomach-Nausea) Results & Data (ED) Vital Signs Vital Signs - 24 hr 11/14/22 18:35 Temperature 36.7 C Temperature Source Temporal Artery Scan Pulse Rate 85 Pulse Rhythm Regular Pulse Strength Normal Respiratory Rate 18 Respiratory Effort / Characteristics Non-Labored Spontaneous Respiratory Depth Normal Respiratory Pattern Regular Blood Pressure 143/105 H Blood Pressure Mean 117 Blood Pressure Position Sitting Pulse Oximetry 98 Oxygen Delivery Method Room Air Sepsis Recent Fever Within 48 Hours No Sepsis New/Unexplained Change in Mental Status N/A Sepsis Action Taken by Nursing No Action Required Laboratory Data Result diagrams: 11/14/22 18:58 11/14/22 18:58 Lab Results 11/14/22 11/14/22 11/14/22 Range/Units 18:58 18:58 18:58 WBC 9.81 (4.8-10.8) K/ul RBC 4.82 (3.93-5.22) M/uL Hgb 14.3 (12.0-16.0) g/dl Hct 41.2 (34.1-44.9) % MCV 85.5 (80.0-100.0) fL MCH 29.7 (25.0-34.0) pg MCHC 34.7 (32.0-36.0) g/dL RDW Std Deviation 36.8 (36.4-46.3) fL RDW Coeff of Jerri 11.7 (11.5-14.5) % Plt Count 403 H (130-400) K/uL MPV 10.4 (9.4-12.3) fL Immature Gran % (Auto) 0.2 % Neut % (Auto) 65.5 % Lymph % (Auto) 26.0 % [place] % (Auto) 6.0 % Eos % (Auto) 1.4 % Baso % (Auto) 0.9 % Neut # (Auto) 6.42 (1.4-6.5) K/uL Lymph # (Auto) 2.55 (1.2-3.4) K/uL [place] # (Auto) 0.59 (0.24-0.82) K/uL Eos # (Auto) 0.14 (0-0.50) K/uL Baso # (Auto) 0.09 (0-0.2) K/uL Immature Gran # (Auto) 0.02 (0.00-0.02) K/uL PT 10.5 (9.0-12.0) Seconds INR 1.0 (0.9-1.1) APTT 30.2 (21.0-31.0) Seconds PTT Ratio 1.1 Sodium 136 (136-145) mmol/L Potassium 3.9 (3.5-5.1) mmol/L Chloride 102 (98-107) mmol/L Carbon Dioxide 22 (21-32) mmol/L Anion Gap 12 H (3-11) BUN 8 (6-23) mg/dl Creatinine 0.66 (0.6-1.2) mg/dl Est Cr Clr Drug Dosing 168.8 ml/min Est GFR ( Amer) 141.3 ml/min Est GFR (Non-Af Amer) 121.9 ml/min BUN/Creatinine Ratio 12.1 (10-20) Glucose 146 H (70-99(Fasting)) mg/dl Calcium 9.4 (8.5-10.1) mg/dl Total Bilirubin 3.0 H (0.2-1.0) mg/dl AST 258 H (13-39) U/L ALT 387 H (7-52) U/L Alkaline Phosphatase 236 H (34-104) U/L Troponin I High Sens 3.1 (0-14) pg/ml Total Protein 9.0 H (6.0-8.3) gm/dl Albumin 4.4 (3.4-5.0) gm/dl Globulin 4.6 H (2.5-4.0) gm/dl Albumin/Globulin Ratio 1.0 (0.9-2) Lipase (11-82) U/L Urine Color Urine Appearance (Clear) Urine pH (4.5-7.5) Ur Specific [place] (1.000-1.030) Urine Protein (Negative) Urine Glucose (UA) (Negative) Urine Ketones (Negative) Urine Blood (Negative) Urine Nitrite (Negative) Urine Bilirubin (Negative) Urine Urobilinogen (Negative) Ur Leukocyte Esterase (Negative) Urine WBC (Auto) (0-5) /hpf Urine RBC (Auto) (0-4) /hpf U Hyaline Cast (Auto) (0-5) /lpf U Epithel Cells (Auto) (0-5) /lpf Urine Bacteria (Auto) (Negative) Urine Yeast SARS-CoV-2, RNA, NAAT (NEGATIVE) 11/14/22 11/14/22 11/14/22 Range/Units 18:58 19:58 20:38 WBC (4.8-10.8) K/ul RBC (3.93-5.22) M/uL Hgb (12.0-16.0) g/dl Hct (34.1-44.9) % MCV (80.0-100.0) fL MCH (25.0-34.0) pg MCHC (32.0-36.0) g/dL RDW Std Deviation (36.4-46.3) fL RDW Coeff of Jerri (11.5-14.5) % Plt Count (130-400) K/uL MPV (9.4-12.3) fL Immature Gran % (Auto) % Neut % (Auto) % Lymph % (Auto) % [place] % (Auto) % Eos % (Auto) % Baso % (Auto) % Neut # (Auto) (1.4-6.5) K/uL Lymph # (Auto) (1.2-3.4) K/uL [place] # (Auto) (0.24-0.82) K/uL Eos # (Auto) (0-0.50) K/uL Baso # (Auto) (0-0.2) K/uL Immature Gran # (Auto) (0.00-0.02) K/uL PT (9.0-12.0) Seconds INR (0.9-1.1) APTT (21.0-31.0) Seconds PTT Ratio Sodium (136-145) mmol/L Potassium (3.5-5.1) mmol/L Chloride (98-107) mmol/L Carbon Dioxide (21-32) mmol/L Anion Gap (3-11) BUN (6-23) mg/dl Creatinine (0.6-1.2) mg/dl Est Cr Clr Drug Dosing ml/min Est GFR ( Amer) ml/min Est GFR (Non-Af Amer) ml/min BUN/Creatinine Ratio (10-20) Glucose (70-99(Fasting)) mg/dl Calcium (8.5-10.1) mg/dl Total Bilirubin (0.2-1.0) mg/dl AST (13-39) U/L ALT (7-52) U/L Alkaline Phosphatase (34-104) U/L Troponin I High Sens (0-14) pg/ml Total Protein (6.0-8.3) gm/dl Albumin (3.4-5.0) gm/dl Globulin (2.5-4.0) gm/dl Albumin/Globulin Ratio (0.9-2) Lipase 16 (11-82) U/L Urine Color Dark Yellow Urine Appearance Cloudy A (Clear) Urine pH 6.0 (4.5-7.5) Ur Specific [place] 1.027 (1.000-1.030) Urine Protein Trace H (Negative) Urine Glucose (UA) Negative (Negative) Urine Ketones Trace H (Negative) Urine Blood Negative (Negative) Urine Nitrite Positive A (Negative) Urine Bilirubin 3+ H (Negative) Urine Urobilinogen Negative (Negative) Ur Leukocyte Esterase 1+ H (Negative) Urine WBC (Auto) 1-5 (0-5) /hpf Urine RBC (Auto) 0-4 (0-4) /hpf U Hyaline Cast (Auto) 1-5 (0-5) /lpf U Epithel Cells (Auto) >30 H (0-5) /lpf Urine Bacteria (Auto) Negative (Negative) Urine Yeast Not Reportable SARS-CoV-2, RNA, NAAT NEGATIVE (NEGATIVE) Administered Medications Discontinued Medications Ioversol (Optiray 350 100ml) 83 ml IV ONCE ONE Stop: 11/14/22 20:11 Last Admin: 11/14/22 20:10 Dose: 83 ml Documented By: AMADA Morphine Sulfate (Morphine Sulfate 2 Mg/Ml Carp) Confirm Administered Dose 2 mg .ROUTE .STK-MED ONE Stop: 11/14/22 21:34 Last Admin: 11/14/22 21:35 Dose: 2 mg Documented By: CLIFTON Ondansetron HCl (Ondansetron Inj 2 Mg/Ml 2 Ml Vial) Confirm Administered Dose 4 mg .ROUTE .STK-MED ONE Stop: 11/14/22 21:35 Last Admin: 11/14/22 21:36 Dose: 4 mg Documented By: CLIFTON Imaging Data Radiologist's Impression: Abdomen/Pelvis CT 11/14/22 19:[address] WITH IV CONTRAST CT DOSE: 918.79 mGy.cm HISTORY: epigastric pain elevated bili/lfts previous cholecystectomy TECHNIQUE: Multiaxial CT images of the abdomen and pelvis were performed following the use of intravenous contrast. A dose lowering technique was utilized adhering to the principles of ALARA. COMPARISON STUDY: None. FINDINGS: The lung bases are clear. No pneumoperitoneum. No pneumatosis. No fractures within the visualized osseous structures. There is a 1.3 cm right breast lesion on image 12. This may represent a fibroadenoma but is indeterminate by CT. Mild hepatic steatosis. The main portal vein is patent. The pancreas, spleen, adrenal glands, and kidneys are unremarkable. No hydronephrosis. Normal caliber abdominal aorta. No retroperitoneal lymphadenopathy. There are few small stones within the distal common bile duct with the largest on image 210 measuring 4 mm. This results in the moderate bile duct dilatation. No pelvic free fluid. The bladder, uterus, and adnexa are unremarkable. No bowel wall thickening or obstruction. Normal appendix. IMPRESSION: 1. A few small stones within the distal common bile duct with the largest measuring 4 mm. This likely accounts for the moderate bile duct dilatation. 2. Hepatic steatosis. 3. A 13 mm right breast lesion. This favors a fibroadenoma but is technically indeterminate by CT. Follow-up mammogram/ultrasound at a dedicated breast cancer Center is recommended for further evaluation. ACT 112: Positive. There are findings on this exam that require communication between the performing entity and the patient following Patient Test Result Information Act ([place] Act 112) guidelines. Electronically signed by: Art Early M.D. 11/14/2022 8:51 PM Chest X-Ray 11/14/22 20:18 XR chest 1V portable HISTORY: Atypical chest pain. COMPARISON: None. FINDINGS: The lungs are clear. Cardiac silhouette is normal in size. No pleural effusions. No pneumothorax. IMPRESSION: No acute process. ACT 112: Negative or not required by law. Electronically signed by: Art Early M.D. 11/14/2022 8:59 PM Discharge Plan Visit Data Chief Complaint: Chest Pain Stated Complaint: CHEST PAIN,NAUSEA,VERTIGO, CANNOT TAKE FULL BREATH ED Provider: Alonzo Stacy Discharge Problem: Choledocholithiasis, Transaminitis, Abdominal pain Patient Disposition: Admitted As Inpatient Discharge Instructions Interventions: ED Discharge Assessment Last Done: 11/14/22 22:35
[2022-11-14] MEDS ORDERED: OPTIRAY 350 100ml IV ONE (20:10)
[2022-11-14 20:11] LABS: Appearance Urine Cloudy (Clear); Bacteria Urine Automated Negative (Negative); Blood Urine Negative (Negative); Color Urine Dark Yellow; Epithelial Cell Urine Auto >30 /lpf (0-5); Glucose Urine UA Negative (Negative); Ketones Urine Trace (Negative); Leukocyte Esterase Urine 1+ (Negative); Nitrite Urine Positive (Negative); Protein Urine Trace (Negative); Specific Gravity Urine 1.027 (1.000-1.030); Urobilinogen Urine Negative (Negative)
[2022-11-14 20:19] LABS: Bilirubin Urine 3+ (Negative)
[2022-11-14 20:53] LABS: RBC Urine Automated 0-4 /hpf (0-4)
--- NOTE | 2022-11-14 20:54 | CT Scan Report ---
ABDOMEN AND PELVIS CT WITH IV CONTRAST CT DOSE: 918.79 mGy.cm HISTORY: epigastric pain elevated bili/lfts previous cholecystectomy TECHNIQUE: Multiaxial CT images of the abdomen and pelvis were performed following the use of intrave nous contrast. A dose lowering technique was utilized adhering to the principles of ALARA. COMPARISON STUDY: None. FINDINGS: The lung bases are clear. No pneumoperitoneum. No pneumatosis. No fractures within the visu alized osseous structures. There is a 1.3 cm right breast lesion on image 12. This may represent a fi broadenoma but is indeterminate by CT. Mild hepatic steatosis. The main portal vein is patent. The pa ncreas, spleen, adrenal glands, and kidneys are unremarkable. No hydronephrosis. Normal caliber abdom inal aorta. No retroperitoneal lymphadenopathy. There are few small stones within the distal common b ile duct with the largest on image 210 measuring 4 mm. This results in the moderate bile duct dilatat ion. No pelvic free fluid. The bladder, uterus, and adnexa are unremarkable. No bowel wall thickening or obstruction. Normal appendix. IMPRESSION: 1. A few small stones within the distal common bile duct with the largest measuring 4 mm. This likely accounts for the moderate bile duct dilatation. 2. Hepatic steatosis. 3. A 13 mm right breast lesion. This favors a fibroadenoma but is technically indeterminate by CT. Fo llow-up mammogram/ultrasound at a dedicated breast cancer Center is recommended for further evaluatio n. ACT 112: Positive. There are findings on this exam that require communication between the performing entity and the patient following Patient Test Result Information Act ([place] Act 112) guidelines. Electronically signed by: Art Early M.D. 11/14/2022 8:51 PM
--- NOTE | 2022-11-14 21:00 | XRay Report ---
XR chest 1V portable HISTORY: Atypical chest pain. COMPARISON: None. FINDINGS: The lungs are clear. Cardiac silhouette is normal in size. No pleural effusions. No pneumot horax. IMPRESSION: No acute process. ACT 112: Negative or not required by law. Electronically signed by: Art Early M.D. 11/14/2022 8:59 PM
--- NOTE | 2022-11-14 21:03 | History & Physical Report ---
Date of Service November 14, 2022 Assessment & Plan (1) Transaminitis: Plan: Patient has mild elevation transaminitis and bilirubin with dilated distal common bile duct with stones within seen on CT scan. She has a history of a cholecystectomy. We will keep n.p.o. have gastroenterology consult for possible ERCP 11/15/2022 Patient being on Protonix twice daily parenteral pain and nausea control and IV fluid lactated Ringer's (2) Hepatic steatosis: Plan: Hepatic steatosis noted on imaging we will provide counseling or referral to primary care (3) Breast mass: Plan: Incidentally noted right breast mass with recommendations to follow-up with the breast center for possible mammography ultrasound. 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 She uses a cane for ambulation History of Present Illness Primary Care Provider: Byron Alba III, XIOMARA 27-year-old female with history of cholecystectomy presents to the ER with chest pain. This is been going on for about 2 weeks. Its most worse postprandially. Her initial cardiac evaluation with EKG and troponin is unremarkable. There is a pleuritic sensations of the pain CT scan is concerning for possible microlithiasis or retained stone in the common bile duct. Patient has elevation of her transaminases and bilirubin but not her lipase She is mildly hypertensive at the emergency department Allergies Allergy/AdvReac Type Severity Reaction Status Date / Time No Known Allergies Allergy Verified 11/14/22 21:05 Home Medications Medication Instructions Recorded Confirmed Type cetirizine 10 mg tablet (Zyrtec) 10 mg PO DAILY 04/25/22 11/14/22 History multivitamin 1 tab PO DAILY 04/25/22 11/14/22 History norethindrone 1 mg-ethinyl 1 tab PO DAILY 04/25/22 11/14/22 History estradiol 20 mcg (21)-iron 75 mg (7) tablet (Fela Fe 12/21 ()) omeprazole 10 mg capsule,delayed 10 mg PO DAILY 04/25/22 11/14/22 History release albuterol sulfate 90 mcg/actuation 2 inh inhalation Q6H PRN Shortness 11/07/22 11/14/22 History breath activated powder inhaler Of Breath sodium citrate 230 mg chewable 230 mg PO DIRECTED PRN 11/07/22 11/14/22 History tablet (Nauzene Upset NAUSEA/UPSET STOMACH Stomach-Nausea) Past Med/Surg History Medical History (Updated 11/14/22 @ 21:02 by Bhavesh Calvillo MD) Asthma Obesity Surgical History (Updated 11/07/22 @ 15:19 by XIOMARA Bearden III) S/P cholecystectomy At age 17 S/P discectomy for herniated nucleus pulposus Family History (Updated 11/07/22 @ 15:23 by XIOMARA Bearden III) Mother Hypothyroidism Fibromyalgia Migraine Eczema Diabetes Grandfather (Maternal) Gout Agent orange exposure Hypothyroidism Psoriasis Myocardial infarction Grandmother (Maternal) Hyperthyroidism Migraine Father Gout Hypertension Grandfather (Paternal) Heart disease Diabetes Myocardial infarction Grandmother (Paternal) Stroke Breast cancer Denies family history of Ovarian cancer Prostate cancer Colorectal cancer Social History Smoking Status: Never smoker Second Hand Exposure: No; Hx Alcohol Use: No Hx Substance Use: No Preferred Language: Guinean Communication Ability: Effective Visual Impairment: No Limitations Hearing Ability: Normal Electrical Systems Designer Required: No Beliefs That Will Affect Care: None marital status: Single Current Living Situation: Significant Other current occupational status: employed Feels Safe at Home: Yes Childhood Exposure to Second-Hand Smoke: No Diet Comment: regular Dental Care, Regularly: No Physical Activity Frequency: 1-2 Times per Week Seatbelt Use: always Sunscreen Use: Yes Assistive Devices: Glasses Review of Systems Review of Systems: Mild distress and fatigue no headache, no visual changes no speech or swallowing issues Pleuritic and postprandial chest pain which is sharp no associated pressure no shortness of breath, cough or wheezes Right upper quadrant pain on examination, no nausea or vomiting, diarrhea or constipation no dysuria, hematuria or frequency no focal joint pain or swelling no back pain, CVA tenderness or radicular pain no bruising, bleeding or rashes no focal signs of weakness or numbness or altered sensation no complaints of anxiety or depression.. Physical Exam Physical Exam: The patient appeared well nourished and normally developed. Vital signs as documented. Head exam is normocephalic atraumatic Neck is without JVD, thyromegaly, or carotid bruits. Lungs are clear to auscultation, no focal loss of breath sounds Cardiac exam, Rhythm is regular.. No murmurs, rubs or gallops. Abdominal exam reveals normal bowel sounds, tenderness throughout the upper abdomen worse in the epigastrium Extremities are nonedematous and both pedal pulses are present Neurologic exam is alert and oriented, no focal loss of strength or sensation Skin is without bruises or rashes Psychologically is without concerns for anxiety or depression.. Results & Data Results & Data ([facility]) Vital Signs (Past 12 Hours) Vital Signs Temp Pulse Resp BP Pulse Ox O2 Del Method 11/14/22 18:35 98.1 F 85 18 143/105 H 98 Room Air Diagnostic Findings Abdomen/Pelvis CT 11/14/22 19:[address] WITH IV CONTRAST CT DOSE: 918.79 mGy.cm HISTORY: epigastric pain elevated bili/lfts previous cholecystectomy TECHNIQUE: Multiaxial CT images of the abdomen and pelvis were performed following the use of intravenous contrast. A dose lowering technique was utilized adhering to the principles of ALARA. COMPARISON STUDY: None. FINDINGS: The lung bases are clear. No pneumoperitoneum. No pneumatosis. No fractures within the visualized osseous structures. There is a 1.3 cm right breast lesion on image 12. This may represent a fibroadenoma but is indeterminate by CT. Mild hepatic steatosis. The main portal vein is patent. The pancreas, spleen, adrenal glands, and kidneys are unremarkable. No hydronephrosis. Normal caliber abdominal aorta. No retroperitoneal lymphadenopathy. There are few small stones within the distal common bile duct with the largest on image 210 measuring 4 mm. This results in the moderate bile duct dilatation. No pelvic free fluid. The bladder, uterus, and adnexa are unremarkable. No bowel wall thickening or obstruction. Normal appendix. IMPRESSION: 1. A few small stones within the distal common bile duct with the largest measuring 4 mm. This likely accounts for the moderate bile duct dilatation. 2. Hepatic steatosis. 3. A 13 mm right breast lesion. This favors a fibroadenoma but is technically indeterminate by CT. Follow-up mammogram/ultrasound at a dedicated breast cancer Center is recommended for further evaluation. ACT 112: Positive. There are findings on this exam that require communication between the performing entity and the patient following Patient Test Result Information Act ([place] Act 112) guidelines. Electronically signed by: Art Earyl M.D. 11/14/2022 8:51 PM Chest X-Ray 11/14/22 20:18 XR chest 1V portable HISTORY: Atypical chest pain. COMPARISON: None. FINDINGS: The lungs are clear. Cardiac silhouette is normal in size. No pleural effusions. No pneumothorax. IMPRESSION: No acute process. ACT 112: Negative or not required by law. Electronically signed by: Art Early M.D. 11/14/2022 8:59 PM Code Status & VTE Plan VTE Prophylaxis Plan VTE Prophylaxis will be ordered: Yes PG Care Time/CCT Total # of Minutes Spent Total Time Spent with Patient: Total time spent is greater than 50% in coordination of care (as documented) at patient's floor/unit and/or counseling patient: Coding Level of Care Code INT OBSERVATION CARE 50M LVL 2 Diagnoses Transaminitis R74.01 Hepatic steatosis K76.0 Breast mass N63.0 Foot drop, right M21.371
[2022-11-14] MEDS ORDERED: MoRPHine SULFATE 2 MG/ML CARP ONE (21:33)
[2022-11-14] MEDS ORDERED: ONDANSETRON INJ 2 MG/ML 2 ML VIAL ONE (21:34)
[2022-11-14] MEDS ORDERED: MoRPHine SULFATE 2 MG/ML CARP IV STA (22:48)
[2022-11-14] MEDS ORDERED: PROMETHAZINE HCL 12.5 MG in SODIUM CHLORIDE 0.9% 50 ML IV STA (22:48)
[2022-11-14] MEDS ORDERED: MoRPHine SULFATE 4 MG/ML 1 ML CARP\\VIAL IV PRN (22:48)
[2022-11-14] MEDS ORDERED: ONDANSETRON INJ 2 MG/ML 2 ML VIAL IV PRN (22:48)
[2022-11-14] MEDS ORDERED: PROMETHAZINE HCL 12.5 MG in SODIUM CHLORIDE 0.9% 50 ML IV PRN (22:48)
[2022-11-14] MEDS ORDERED: MoRPHine SULFATE 2 MG/ML CARP IV PRN (22:48)
[2022-11-14] MEDS ORDERED: ALBUTEROL HFA 8 GM INHALER INH PRN (22:53)
[2022-11-14] MEDS: LACTATED RINGER'S 1,000 ML IV SCH (23:00)
[2022-11-14] MEDS: PANTOprazole 40 MG in SYRINGE 0 ML IV SCH (23:46)
[2022-11-15] MEDS: ORAL CONTRACEPTIVE~ORDER AWAITING ACTION SCH ×4 (00:09→23:54)
[2022-11-15] MEDS: LACTATED RINGER'S 1,000 ML IV SCH ×3 (06:18→21:36)
[2022-11-15 07:07] LABS: Hematocrit (blood only) 38.1 % (34.1-44.9); Hemoglobin 13.1 g/dl (12.0-16.0); Mean Corpuscular Hemoglobin 29.2 pg (25.0-34.0); Mean Corpuscular Hgb Conc 34.4 g/dL (32.0-36.0); Mean Platelet Volume 10.5 fL (9.4-12.3); Platelet Count 366 K/uL (130-400); RDW Coefficient of Variation 11.9 % (11.5-14.5); RDW Standard Deviation 36.9 fL (36.4-46.3); Red Blood Count 4.48 M/uL (3.93-5.22); White Blood Count 9.39 K/ul (4.8-10.8)
[2022-11-15 07:31] LABS: BUN Creatinine Ratio 8.5 (10-20); Bilirubin,Total 3.8 mg/dl (0.2-1.0); Calcium 9.2 mg/dl (8.5-10.1); Creatinine Clr Calc Pharmacy 156.4 ml/min; Est GFR (African American) 136.2 ml/min; Est GFR (Non-African American) 117.6 ml/min; Globulin 3.9 gm/dl (2.5-4.0); Potassium 3.9 mmol/L (3.5-5.1); Total Protein 7.9 gm/dl (6.0-8.3)
--- NOTE | 2022-11-15 08:13 | Hospitalist Progress Note ---
Date of Service November 15, 2022 Assessment & Plan (1) Transaminitis: Plan: Patient has mild elevation transaminitis and bilirubin with dilated distal common bile duct with stones within seen on CT scan. She has a history of a cholecystectomy. We will keep n.p.o. have gastroenterology consult for possible ERCP 11/15/2022 Patient being on Protonix twice daily parenteral pain and nausea control and IV fluid lactated Ringer's (2) Choledocholithiasis: Plan: S/P ERCP - Complete removal was done with biliary sphincterotomy and balloon extraction. One biliary stent was placed and will need repeat ERCP in 6 weeks for removal of stent Cipro for a total of 7 days (3) Hepatic steatosis: Plan: Hepatic steatosis noted on imaging we will provide counseling or referral to primary care Discussed diet and weight loss with patient and she will follow up with her PCP upon discharge regarding this further (4) Breast mass: Plan: Incidentally noted right breast mass with recommendations to follow-up with the breast center for possible mammography ultrasound. Patient states she felt a right breast lump in the past while doing a self breast exam. Advised patient of the incidental CT finding and the need to have a mammogram/Ultrasound (5) Foot drop, right: Plan: Patient has chronic right foot drop from a herniated nucleus pulposus and had surgery 6 months ago. She uses a cane for ambulation Admission and Anticipated Discharge Date Admission Date: November 14, 2022 Subjective Patient sitting up in bed and states she is feeling much better today compared to yesterday. She no longer has any nausea and the RUQ and epigastric pain has significantly improved. Patient has been NPO for ERCP later today. ERCP today revealed choledocholithiasis. Complete removal was accomplished with biliary sphincterotomy and balloon extraction, one biliary stent was placed into the CBD. The major papilla appeared to be small. Biliary papillary stenosis, benign. GI started Cipro 400mg IV BID and recommended if patient does well ok to discharge tomorrow with a total of 7 days antibiotics. Patient will need a repeat ERCP in 6 weeks to remove the stent. Review of Systems Review of Systems: Patient tells me that she felt a right breast lump in the past while doing a self breast exam. Constitutional: no fever, no chills and no weight loss Respiratory: no cough, no chest congestion and no dyspnea Cardiovascular: no chest pain, no dyspnea and no edema Gastrointestinal: + abdominal pain, + nausea and + vomiting; no early satiety, no hematemesis, no dysphagia, no constipation and no melena Genitourinary: no dysuria, no difficulty urinating, no urinary frequency and no urinary hesitancy Musculoskeletal: + back pain; no neck pain, no joint pain and no swelling Integumentary: no rash, no lesions, no sores and no wounds Neurologic: no falls, no dizziness and no syncope Physical Exam Constitutional: WD/WN, vitals as above Neck: trachea midline, no thyromegaly Respiratory: normal respiratory effort, lungs clear to auscultation Cardiovascular: RRR, no murmur, no edema Gastrointestinal (Abdomen): Inspection/Auscultation: abdomen normal to inspection, normal bowel sounds and + abdominal surgical scar Percussion/Palpation: abdomen soft; abdomen nontender, no guarding, abdomen not rigid and no hepatosplenomegaly Skin: no rashes, warm and dry Neurologic: patellar DTR's 2+ bilat, sensation intact and PERRL, EOMI, accomm odation nl, no face palsy, no dysarthria Results & Data Results & Data ([facility]) Vital Signs (Past 12 Hours) Vital Signs Temp Pulse Resp BP Pulse Ox O2 Del Method 11/15/22 07:57 36.7 C 64 16 115/74 96 Room Air 11/14/22 23:12 36.7 C 76 16 132/88 95 Room Air 11/14/22 22:48 36.7 C 76 16 132/88 95 Room Air 11/14/22 21:36 66 20 180/121 H 100 Room Air Laboratory Results Abnormal lab results 11/14/22 11/14/22 11/14/22 Range/Units 18:58 18:58 19:58 Plt Count 403 H (130-400) K/uL Anion Gap 12 H (3-11) BUN/Creatinine Ratio (10-20) Glucose 146 H (70-99(Fasting)) mg/dl Total Bilirubin 3.0 H (0.2-1.0) mg/dl AST 258 H (13-39) U/L ALT 387 H (7-52) U/L Alkaline Phosphatase 236 H (34-104) U/L Total Protein 9.0 H (6.0-8.3) gm/dl Globulin 4.6 H (2.5-4.0) gm/dl Urine Appearance Cloudy A (Clear) Urine Protein Trace H (Negative) Urine Ketones Trace H (Negative) Urine Nitrite Positive A (Negative) Urine Bilirubin 3+ H (Negative) Ur Leukocyte Esterase 1+ H (Negative) U Epithel Cells (Auto) >30 H (0-5) /lpf 11/15/22 Range/Units 06:42 Plt Count (130-400) K/uL Anion Gap (3-11) BUN/Creatinine Ratio 8.5 L (10-20) Glucose 106 H (70-99(Fasting)) mg/dl Total Bilirubin 3.8 H (0.2-1.0) mg/dl AST 246 H (13-39) U/L ALT 377 H (7-52) U/L Alkaline Phosphatase 218 H (34-104) U/L Total Protein (6.0-8.3) gm/dl Globulin (2.5-4.0) gm/dl Urine Appearance (Clear) Urine Protein (Negative) Urine Ketones (Negative) Urine Nitrite (Negative) Urine Bilirubin (Negative) Ur Leukocyte Esterase (Negative) U Epithel Cells (Auto) (0-5) /lpf Diagnostic Findings Abdomen/Pelvis CT 11/14/22 19:[address] WITH IV CONTRAST CT DOSE: 918.79 mGy.cm HISTORY: epigastric pain elevated bili/lfts previous cholecystectomy TECHNIQUE: Multiaxial CT images of the abdomen and pelvis were performed following the use of intravenous contrast. A dose lowering technique was utilized adhering to the principles of ALARA. COMPARISON STUDY: None. FINDINGS: The lung bases are clear. No pneumoperitoneum. No pneumatosis. No fractures within the visualized osseous structures. There is a 1.3 cm right breast lesion on image 12. This may represent a fibroadenoma but is indeterminate by CT. Mild hepatic steatosis. The main portal vein is patent. The pancreas, spleen, adrenal glands, and kidneys are unremarkable. No hydronephrosis. Normal caliber abdominal aorta. No retroperitoneal lymphadenopathy. There are few small stones within the distal common bile duct with the largest on image 210 measuring 4 mm. This results in the moderate bile duct dilatation. No pelvic free fluid. The bladder, uterus, and adnexa are unremarkable. No bowel wall thickening or obstruction. Normal appendix. IMPRESSION: 1. A few small stones within the distal common bile duct with the largest measuring 4 mm. This likely accounts for the moderate bile duct dilatation. 2. Hepatic steatosis. 3. A 13 mm right breast lesion. This favors a fibroadenoma but is technically indeterminate by CT. Follow-up mammogram/ultrasound at a dedicated breast cancer Center is recommended for further evaluation. ACT 112: Positive. There are findings on this exam that require communication between the performing entity and the patient following Patient Test Result Information Act ([place] Act 112) guidelines. Electronically signed by: Art Early M.D. 11/14/2022 8:51 PM Chest X-Ray 11/14/22 20:18 XR chest 1V portable HISTORY: Atypical chest pain. COMPARISON: None. FINDINGS: The lungs are clear. Cardiac silhouette is normal in size. No pleural effusions. No pneumothorax. IMPRESSION: No acute process. ACT 112: Negative or not required by law. Electronically signed by: Art Early M.D. 11/14/2022 8:59 PM PG Care Time/CCT Total # of Minutes Spent Total Time Spent with Patient: Total time spent is greater than 50% in coordination of care (as documented) at patient's floor/unit and/or counseling patient: Coding Level of Care Code 50736 Subseq Obs Care Lvl 3 Diagnoses Transaminitis R74.01 Choledocholithiasis K80.50 Hepatic steatosis K76.0 Breast mass N63.0 Foot drop, right M21.371 Time Spent (min) 25
--- NOTE | 2022-11-15 09:03 | Gastrointestinal Consultation ---
Date of Consultation November 15, 2022 Assessment & Plan (1) Choledocholithiasis: 27 year old admitted with pain, nausea, imaging showing CBD stone and labs showing elevated Tbili 3.8, AST 246, ALT 377, ALKP 218. No leukocytosis or fevers noted. NPO ERCP this AM for suspected retained biliary stones Analgesia PRN Antiemetics PRN Thank you for allowing us to participate in the care of this patient. Please call with any acute changes, questions or concerns. Please see addendum below with additional recommendation from my supervising physician. Supervising Physician Co-Signing Physician Notes I saw and evaluated the patient. Our service was consulted for evaluation of intermittent abdominal pain ongoing for 2 weeks, imaging reveals choledocholithiasis, the patient has an elevated AST ALT and bilirubin. She did have a prior cholecystectomy about 10 years ago and does note having had intermittent symptoms over the last 4 to 5 years. These typically last only a few hours at a time, over the last 2 weeks she has had a crescendo of her symptoms and notes that it becomes unbearable yesterday afternoon. Physical examination No obvious distress Mild scleral icterus Mild right-sided abdominal tenderness Impression: Patient presents for symptomatic choledocholithiasis we are planning to do and ERCP for biliary decompression and likely biliary stent placement. I discussed risks and benefits with the patient to include bleeding, infection, perforation, pain, pancreatitis, failed biliary cannulation and the need for follow-up studies. We did discuss the increased risk of post ERCP pancreatitis given the young age and gender of the patient. History of Present Illness Reason for Consultation: ERCP request Requesting Physician: Logan Attending Physician: Win Ford History of Present Illness 27 year old admitted with abd pain, jaundice - GI asked to evaluate for ERCP. Pt was seen, evaluated, chart reviewed. Notes that there has been intermittent upper abd pain for about 2 weeks. This would be severe when occurred but would resolve quickly. Last evening, pain return, persisted and was more severe associated with nausea. Sought ED care. In the ED, CT w/ stones in CBD, labs with Tbili 3.8, AST 246, ALT 377, ALKP 218 Tbili 3.8 AST 246 ALT 377 ALKP 218 CTAP 2021: A few small stones within the distal common bile duct with the largest measuring 4 mm. This likely accounts for the moderate bile duct dilatation. Hepatic steatosis. Allergies Allergy/AdvReac Type Severity Reaction Status Date / Time No Known Allergies Allergy Verified 11/14/22 21:05 Home Medications Medication Instructions Recorded Confirmed Type cetirizine 10 mg tablet (Zyrtec) 10 mg PO DAILY 04/25/22 11/14/22 History multivitamin 1 tab PO DAILY 04/25/22 11/14/22 History norethindrone 1 mg-ethinyl 1 tab PO DAILY 04/25/22 11/14/22 History estradiol 20 mcg (21)-iron 75 mg (7) tablet (Fela Fe 12/21 (28)) omeprazole 10 mg capsule,delayed 10 mg PO DAILY 04/25/22 11/14/22 History release albuterol sulfate 90 mcg/actuation 2 inh inhalation Q6H PRN Shortness 11/07/22 11/14/22 History breath activated powder inhaler Of Breath sodium citrate 230 mg chewable 230 mg PO DIRECTED PRN 11/07/22 11/14/22 History tablet (Nauzene Upset NAUSEA/UPSET STOMACH Stomach-Nausea) Patient History Medical History (Updated 11/14/22 @ 22:58 by Alonzo Stacy DO) Asthma Obesity Surgical History (Updated 11/07/22 @ 15:19 by XIOMARA Bearden III) S/P cholecystectomy At age 17 S/P discectomy for herniated nucleus pulposus Family History (Updated 11/07/22 @ 15:23 by XIOMARA Bearden III) Mother Hypothyroidism Fibromyalgia Migraine Eczema Diabetes Grandfather (Maternal) Gout Agent orange exposure Hypothyroidism Psoriasis Myocardial infarction Grandmother (Maternal) Hyperthyroidism Migraine Father Gout Hypertension Grandfather (Paternal) Heart disease Diabetes Myocardial infarction Grandmother (Paternal) Stroke Breast cancer Denies family history of Ovarian cancer Prostate cancer Colorectal cancer Social History Smoking Status: Never smoker Second Hand Exposure: No; Hx Alcohol Use: Yes Alcohol type: beer Hx Substance Use: No Preferred Language: Samoan Communication Ability: Effective Visual Impairment: No Limitations Hearing Ability: Normal Operation Manager Required: No Beliefs That Will Affect Care: None marital status: Single Current Living Situation: Significant Other and Other Current Living Situation Comment: Lives with fiance current occupational status: employed Feels Safe at Home: Yes Childhood Exposure to Second-Hand Smoke: No Diet Comment: regular Dental Care, Regularly: No Physical Activity Frequency: 1-2 Times per Week Seatbelt Use: always Sunscreen Use: Yes Assistive Devices: Cane Review of Systems Review of Systems: All systems reviewed & are unremarkable except as noted in HPI & below Physical Exam Constitutional: WD/WN, vitals as above Respiratory: normal respiratory effort, lungs clear to auscultation Cardiovascular: Rate/Rhythm: regular rate and regular rhythm Gastrointestinal (Abdomen): Inspection/Auscultation: abdomen normal to inspection Percussion/Palpation: + abdomen tender and abdomen soft; no guarding and abdomen not rigid Skin: no rashes, warm and dry Results & Data ([facility]) Vital Signs (Past 12 Hours) Vital Signs Temp Pulse Resp BP Pulse Ox O2 Del Method 11/15/22 07:57 36.7 C 64 16 115/74 96 Room Air 11/14/22 23:12 36.7 C 76 16 132/88 95 Room Air 11/14/22 22:48 36.7 C 76 16 132/88 95 Room Air 11/14/22 21:36 66 20 180/121 H 100 Room Air Laboratory Results 11/15/22 11/15/22 11/14/22 Range/Units 06:42 06:42 20:38 WBC 9.39 (4.8-10.8) K/ul RBC 4.48 (3.93-5.22) M/uL Hgb 13.1 (12.0-16.0) g/dl Hct 38.1 (34.1-44.9) % MCV 85.0 (80.0-100.0) fL MCH 29.2 (25.0-34.0) pg MCHC 34.4 (32.0-36.0) g/dL RDW Std Deviation 36.9 (36.4-46.3) fL RDW Coeff of Jerri 11.9 (11.5-14.5) % Plt Count 366 (130-400) K/uL MPV 10.5 (9.4-12.3) fL Immature Gran % (Auto) % Neut % (Auto) % Lymph % (Auto) % Norman % (Auto) % Eos % (Auto) % Baso % (Auto) % Neut # (Auto) (1.4-6.5) K/uL Lymph # (Auto) (1.2-3.4) K/uL Norman # (Auto) (0.24-0.82) K/uL Eos # (Auto) (0-0.50) K/uL Baso # (Auto) (0-0.2) K/uL Immature Gran # (Auto) (0.00-0.02) K/uL PT (9.0-12.0) Seconds INR (0.9-1.1) APTT (21.0-31.0) Seconds PTT Ratio Sodium 136 (136-145) mmol/L Potassium 3.9 (3.5-5.1) mmol/L Chloride 102 (98-107) mmol/L Carbon Dioxide 25 (21-32) mmol/L Anion Gap 9 (3-11) BUN 6 (6-23) mg/dl Creatinine 0.71 (0.6-1.2) mg/dl Est Cr Clr Drug Dosing 156.4 ml/min Est GFR ( Amer) 136.2 ml/min Est GFR (Non-Af Amer) 117.6 ml/min BUN/Creatinine Ratio 8.5 L (10-20) Glucose 106 H (70-99(Fasting)) mg/dl Calcium 9.2 (8.5-10.1) mg/dl Total Bilirubin 3.8 H (0.2-1.0) mg/dl AST 246 H (13-39) U/L ALT 377 H (7-52) U/L Alkaline Phosphatase 218 H (34-104) U/L Troponin I High Sens (0-14) pg/ml Total Protein 7.9 (6.0-8.3) gm/dl Albumin 4.0 (3.4-5.0) gm/dl Globulin 3.9 (2.5-4.0) gm/dl Albumin/Globulin Ratio 1.0 (0.9-2) Lipase (11-82) U/L Urine Color Urine Appearance (Clear) Urine pH (4.5-7.5) Ur Specific Hallock (1.000-1.030) Urine Protein (Negative) Urine Glucose (UA) (Negative) Urine Ketones (Negative) Urine Blood (Negative) Urine Nitrite (Negative) Urine Bilirubin (Negative) Urine Urobilinogen (Negative) Ur Leukocyte Esterase (Negative) Urine WBC (Auto) (0-5) /hpf Urine RBC (Auto) (0-4) /hpf U Hyaline Cast (Auto) (0-5) /lpf U Epithel Cells (Auto) (0-5) /lpf Urine Bacteria (Auto) (Negative) Urine Yeast SARS-CoV-2, RNA, NAAT NEGATIVE (NEGATIVE) 11/14/22 11/14/22 11/14/22 Range/Units 19:58 18:58 18:58 WBC (4.8-10.8) K/ul RBC (3.93-5.22) M/uL Hgb (12.0-16.0) g/dl Hct (34.1-44.9) % MCV (80.0-100.0) fL MCH (25.0-34.0) pg MCHC (32.0-36.0) g/dL RDW Std Deviation (36.4-46.3) fL RDW Coeff of Jerri (11.5-14.5) % Plt Count (130-400) K/uL MPV (9.4-12.3) fL Immature Gran % (Auto) % Neut % (Auto) % Lymph % (Auto) % Norman % (Auto) % Eos % (Auto) % Baso % (Auto) % Neut # (Auto) (1.4-6.5) K/uL Lymph # (Auto) (1.2-3.4) K/uL Norman # (Auto) (0.24-0.82) K/uL Eos # (Auto) (0-0.50) K/uL Baso # (Auto) (0-0.2) K/uL Immature Gran # (Auto) (0.00-0.02) K/uL PT (9.0-12.0) Seconds INR (0.9-1.1) APTT (21.0-31.0) Seconds PTT Ratio Sodium 136 (136-145) mmol/L Potassium 3.9 (3.5-5.1) mmol/L Chloride 102 (98-107) mmol/L Carbon Dioxide 22 (21-32) mmol/L Anion Gap 12 H (3-11) BUN 8 (6-23) mg/dl Creatinine 0.66 (0.6-1.2) mg/dl Est Cr Clr Drug Dosing 168.8 ml/min Est GFR ( Amer) 141.3 ml/min Est GFR (Non-Af Amer) 121.9 ml/min BUN/Creatinine Ratio 12.1 (10-20) Glucose 146 H (70-99(Fasting)) mg/dl Calcium 9.4 (8.5-10.1) mg/dl Total Bilirubin 3.0 H (0.2-1.0) mg/dl AST 258 H (13-39) U/L ALT 387 H (7-52) U/L Alkaline Phosphatase 236 H (34-104) U/L Troponin I High Sens 3.1 (0-14) pg/ml Total Protein 9.0 H (6.0-8.3) gm/dl Albumin 4.4 (3.4-5.0) gm/dl Globulin 4.6 H (2.5-4.0) gm/dl Albumin/Globulin Ratio 1.0 (0.9-2) Lipase 16 (11-82) U/L Urine Color Dark Yellow Urine Appearance Cloudy A (Clear) Urine pH 6.0 (4.5-7.5) Ur Specific Hallock 1.027 (1.000-1.030) Urine Protein Trace H (Negative) Urine Glucose (UA) Negative (Negative) Urine Ketones Trace H (Negative) Urine Blood Negative (Negative) Urine Nitrite Positive A (Negative) Urine Bilirubin 3+ H (Negative) Urine Urobilinogen Negative (Negative) Ur Leukocyte Esterase 1+ H (Negative) Urine WBC (Auto) 1-5 (0-5) /hpf Urine RBC (Auto) 0-4 (0-4) /hpf U Hyaline Cast (Auto) 1-5 (0-5) /lpf U Epithel Cells (Auto) >30 H (0-5) /lpf Urine Bacteria (Auto) Negative (Negative) Urine Yeast Not Reportable SARS-CoV-2, RNA, NAAT (NEGATIVE) 11/14/22 11/14/22 Range/Units 18:58 18:58 WBC 9.81 (4.8-10.8) K/ul RBC 4.82 (3.93-5.22) M/uL Hgb 14.3 (12.0-16.0) g/dl Hct 41.2 (34.1-44.9) % MCV 85.5 (80.0-100.0) fL MCH 29.7 (25.0-34.0) pg MCHC 34.7 (32.0-36.0) g/dL RDW Std Deviation 36.8 (36.4-46.3) fL RDW Coeff of Jerri 11.7 (11.5-14.5) % Plt Count 403 H (130-400) K/uL MPV 10.4 (9.4-12.3) fL Immature Gran % (Auto) 0.2 % Neut % (Auto) 65.5 % Lymph % (Auto) 26.0 % Norman % (Auto) 6.0 % Eos % (Auto) 1.4 % Baso % (Auto) 0.9 % Neut # (Auto) 6.42 (1.4-6.5) K/uL Lymph # (Auto) 2.55 (1.2-3.4) K/uL Norman # (Auto) 0.59 (0.24-0.82) K/uL Eos # (Auto) 0.14 (0-0.50) K/uL Baso # (Auto) 0.09 (0-0.2) K/uL Immature Gran # (Auto) 0.02 (0.00-0.02) K/uL PT 10.5 (9.0-12.0) Seconds INR 1.0 (0.9-1.1) APTT 30.2 (21.0-31.0) Seconds PTT Ratio 1.1 Sodium (136-145) mmol/L Potassium (3.5-5.1) mmol/L Chloride (98-107) mmol/L Carbon Dioxide (21-32) mmol/L Anion Gap (3-11) BUN (6-23) mg/dl Creatinine (0.6-1.2) mg/dl Est Cr Clr Drug Dosing ml/min Est GFR ( Amer) ml/min Est GFR (Non-Af Amer) ml/min BUN/Creatinine Ratio (10-20) Glucose (70-99(Fasting)) mg/dl Calcium (8.5-10.1) mg/dl Total Bilirubin (0.2-1.0) mg/dl AST (13-39) U/L ALT (7-52) U/L Alkaline Phosphatase (34-104) U/L Troponin I High Sens (0-14) pg/ml Total Protein (6.0-8.3) gm/dl Albumin (3.4-5.0) gm/dl Globulin (2.5-4.0) gm/dl Albumin/Globulin Ratio (0.9-2) Lipase (11-82) U/L Urine Color Urine Appearance (Clear) Urine pH (4.5-7.5) Ur Specific Hallock (1.000-1.030) Urine Protein (Negative) Urine Glucose (UA) (Negative) Urine Ketones (Negative) Urine Blood (Negative) Urine Nitrite (Negative) Urine Bilirubin (Negative) Urine Urobilinogen (Negative) Ur Leukocyte Esterase (Negative) Urine WBC (Auto) (0-5) /hpf Urine RBC (Auto) (0-4) /hpf U Hyaline Cast (Auto) (0-5) /lpf U Epithel Cells (Auto) (0-5) /lpf Urine Bacteria (Auto) (Negative) Urine Yeast SARS-CoV-2, RNA, NAAT (NEGATIVE)
[2022-11-15] MEDS: CETIRIZINE HCL 10 MG TABLET PO SCH (09:16)
[2022-11-15] MEDS: PANTOprazole 40 MG in SYRINGE 0 ML IV SCH ×2 (09:16→21:36)
--- NOTE | 2022-11-15 11:10 | History & Physical Bridge Note ---
Date of Service November 15, 2022 History & Physical Bridge Note I have examined the patient, reviewed the History & Physical and in the interval since the performance of the History & Physical I have noted the following changes of clinical significance: no changes noted
[2022-11-15] MEDS ORDERED: MIDAZOLAM HCL 1 MG/ML 2ML VIAL ONE (11:17)
[2022-11-15] MEDS ORDERED: fentaNYL citrate 100 MCG/2 ML VIAL ONE (11:17)
[2022-11-15] MEDS ORDERED: INDOMETHACIN 50 MG SUPP PR ONE (11:34)
[2022-11-15] MEDS ORDERED: ONDANSETRON INJ 2 MG/ML 2 ML VIAL IV PRN (11:45)
[2022-11-15] MEDS ORDERED: fentaNYL citrate 100 MCG/2 ML VIAL IV PRN (11:45)
[2022-11-15] MEDS ORDERED: ATROPINE SULFATE 0.1 MG/ML 10ML SYR IV PRN (11:45)
[2022-11-15] MEDS ORDERED: HYDROmorphone INJ 2 MG/ML SYR/VIAL IV PRN (11:45)
[2022-11-15] MEDS ORDERED: ePHEDrine sulfate 50 MG/ML AMP IV PRN (11:45)
--- NOTE | 2022-11-15 11:45 | Anesthesiology Consultation ---
Date of Service November 15, 2022 Assessment & Plan ASA ASA2 Proposed Anesthesia Anesthesia Type: General Risk / Benefits Reviewed With: PT / POA / Parent / Guardian, Accepts Plan and Informed Consent Obtained History Surgery Operation Date: 11/15/22 10:35 Proposed Procedures p Endoscopic Retrograde Cholangiopancreatogram - Mena Mcdowell, Height/Weight Height: 5 ft 9 in Weight: 107 kg Allergies Allergy/AdvReac Type Severity Reaction Status Date / Time No Known Allergies Allergy Verified 11/14/22 21:05 Medications Home Medications Medication Instructions Recorded Confirmed Last Taken cetirizine 10 mg tablet (Zyrtec) 10 mg PO DAILY 04/25/22 11/14/22 11/14/22 multivitamin 1 tab PO DAILY 04/25/22 11/14/22 11/14/22 norethindrone 1 mg-ethinyl 1 tab PO DAILY 04/25/22 11/14/22 11/14/22 estradiol 20 mcg (21)-iron 75 mg (7) tablet (Fela Fe 12/21 (28)) omeprazole 10 mg capsule,delayed 10 mg PO DAILY 04/25/22 11/14/22 11/14/22 release albuterol sulfate 90 mcg/actuation 2 inh inhalation Q6H PRN Shortness 11/07/22 11/14/22 Unknown breath activated powder inhaler Of Breath sodium citrate 230 mg chewable 230 mg PO DIRECTED PRN 11/07/22 11/14/22 Unknown tablet (Nauzene Upset NAUSEA/UPSET STOMACH Stomach-Nausea) Active Medications Generic Name Dose Route Start Last Admin Trade Name Butchq PRN Reason Stop Dose Admin Cetirizine HCl 10 mg 11/15/22 09:00 11/15/22 09:16 Cetirizine Hcl 10 Mg Tablet PO 12/15/22 08:59 10 mg DAILY CHRISTINE Administration Lactated Ringer's 1,000 mls @ 125 mls/hr 11/14/22 22:48 11/15/22 06:18 Lr IV 12/14/22 22:47 125 mls/hr .Q8H CHRISTINE Administration Pantoprazole Sodium 40 mg/ 10 mls @ 5 mls/min 11/14/22 22:48 11/15/22 09:16 Syringe IV 12/14/22 22:47 5 mls/min BID CHRISTINE Administration Miscellaneous 1 each 11/15/22 00:00 11/15/22 09:17 Oral Contraceptive~Order Awaiting Action N/A 12/15/22 00:00 1 each QS CHRISTINE Administration NPO Date Last Intake of Fluids: 11/15/22 Time Last Intake of Fluids: 09:16 Date Last Intake of Solids: 11/14/22 Time Last Intake of Solids: 10:30 Past Medical History Medical History Asthma Obesity Exercise / Class Metabolic Activity II 4-5 Yardwork/Stairs/Walk up hill Past Family History Family History Mother Hypothyroidism Fibromyalgia Migraine Eczema Diabetes Grandfather (Maternal) Gout Agent orange exposure Hypothyroidism Psoriasis Myocardial infarction Grandmother (Maternal) Hyperthyroidism Migraine Father Gout Hypertension Grandfather (Paternal) Heart disease Diabetes Myocardial infarction Grandmother (Paternal) Stroke Breast cancer Denies family history of Ovarian cancer Prostate cancer Colorectal cancer Past Surgical History Surgical History S/P cholecystectomy At age 17 S/P discectomy for herniated nucleus pulposus Past Anesthesia History No Hx of Anesthesia Complications and No Family Hx of Anesthesia Complications History of PONV No Hx of PONV and No Hx of Motion Sickness Social History Smoking Status: Never smoker Do You Dip or Chew Tobacco: No Hx Alcohol Use: Yes Alcohol type: beer alcohol intake frequency: a few times a month Alcohol Intake Frequency Comment: x1 per month Hx Substance Use: No Review of Systems denies fever/cough/ colds/ chest pain/ SOB/ YURI denies YURI Physical Exam Vital Signs Last Vital Signs Temp 36.7 C 11/15/22 10:36 Pulse 64 11/15/22 07:57 Resp 16 11/15/22 10:36 BP 139/98 11/15/22 10:36 Pulse Ox 100 11/15/22 10:36 O2 Del Method 11/15/22 10:36 ENMT Mouth: no TMJ abnormality and no dentition abnormality Thyromental Distance: > or= 3.5 Finger Breadths Mallampati Class: II Neck neck extension not limited Respiratory normal respiratory effort; no respiratory distress Auscultation: lungs clear to auscultation bilaterally Cardiovascular Rate/Rhythm: regular rate and regular rhythm Neurologic moves all extremities Psychiatric Orientation: alert and oriented x 3 Testing Laboratory Results 11/15/22 06:42 11/15/22 06:42 PT 10.5 Seconds (9.0-12.0) 11/14/22 18:58 INR 1.0 (0.9-1.1) 11/14/22 18:58 APTT 30.2 Seconds (21.0-31.0) 11/14/22 18:58 Urine Color Dark Yellow 11/14/22 19:58 Urine Appearance Cloudy (Clear) A 11/14/22 19:58 Urine pH 6.0 (4.5-7.5) 11/14/22 19:58 Ur Specific [place] 1.027 (1.000-1.030) 11/14/22 19:58 Urine Protein Trace (Negative) H 11/14/22 19:58 Urine Glucose (UA) Negative (Negative) 11/14/22 19:58 Urine Ketones Trace (Negative) H 11/14/22 19:58 Urine Nitrite Positive (Negative) A 11/14/22 19:58 Ur Leukocyte Esterase 1+ (Negative) H 11/14/22 19:58 Urine WBC (Auto) 1-5 /hpf (0-5) 11/14/22 19:58 Urine RBC (Auto) 0-4 /hpf (0-4) 11/14/22 19:58 U Hyaline Cast (Auto) 1-5 /lpf (0-5) 11/14/22 19:58 U Epithel Cells (Auto) >30 /lpf (0-5) H 11/14/22 19:58 Urine Bacteria (Auto) Negative (Negative) 11/14/22 19:58 11/15/22 10:48 POC Ur Test NEG
[2022-11-15] MEDS ORDERED: DEXAMETHASONE SOD INJ 4 MG/ML VIAL ONE (12:10)
[2022-11-15] MEDS ORDERED: ONDANSETRON INJ 2 MG/ML 2 ML VIAL ONE (12:10)
[2022-11-15] MEDS ORDERED: PROPOFOL IV EMULSION 10 MG/ML 20 ML VIAL IV ONE (12:10)
[2022-11-15] MEDS ORDERED: SUCCINYLCHOLINE CHLORIDE 20 MG/ML 10 ML VIAL IV ONE (12:10)
[2022-11-15] MEDS ORDERED: LIDOCAINE 2% MPF LOCAL 5 ML VIAL INFIL ONE (12:10)
--- NOTE | 2022-11-15 12:27 | GI REPORT ---
Patient Name: Ayala Shafer Procedure Date: 11/15/2022 11:30 AM Date of : 1995 Admit Type: Inpatient Age: 27 Gender: Female Attending MD: Mena Mcdowell DO, Procedure: ERCP Providers: Mena Mcdowell DO Referring MD: Win Ford M.d. Indications: Abdominal pain of suspected biliary origin, Bile duct stone on Computed Tomogram Scan, Elevated liver enzymes Medicines: Monitored Anesthesia Care Complications: No immediate complications. Estimated blood loss: Minimal. Estimated Blood Loss: Estimated blood loss was minimal. Procedure: Pre-Anesthesia Assessment: - Prior to the procedure, a History and Physical was performed, and patient medications, allergies and sensitivities were reviewed. The patient's tolerance of previous anesthesia was reviewed. - The risks and benefits of the procedure and the sedation options and risks were discussed with the patient. All questions were answered and informed consent was obtained. - Patient identification and proposed procedure were verified prior to the procedure by the physician, the nurse and the rotor blade installer. The procedure was verified in the procedure room. - Pre-procedure physical examination revealed no contraindications to sedation. - ASA Grade Assessment: II - A patient with mild systemic disease. - After reviewing the risks and benefits, the patient was deemed in satisfactory condition to undergo the procedure. - The anesthesia plan was to use general anesthesia. - Immediately prior to administration of medications, the patient was re-assessed for adequacy to receive sedatives. - The heart rate, respiratory rate, oxygen saturations, blood pressure, adequacy of pulmonary ventilation, and response to care were monitored throughout the procedure. - The physical status of the patient was re-assessed after the procedure. After obtaining informed consent, the scope was passed under direct vision. Throughout the procedure, the patient's blood pressure, pulse, and oxygen saturations were monitored continuously. The Duodenoscope was introduced through the mouth, and advanced to the duodenum and used to inject contrast into the bile duct. The ERCP was accomplished without difficulty. The patient tolerated the procedure well. Findings: A fiber optics technician film of the abdomen was obtained. Surgical clips, consistent with a previous cholecystectomy, were seen in the area of the right upper quadrant of the abdomen. The esophagus was successfully intubated under direct vision without detailed examination of the pharynx, larynx, and associated structures, and upper GI tract. The upper GI tract was grossly normal. The major papilla was small. The bile duct was deeply cannulated with the short-nosed traction sphincterotome and guidewire. Contrast was injected. I personally interpreted the bile duct images. Contrast extended to the entire biliary tree. A cholecystectomy had been performed. The biliary orifice was stenotic. This appeared benign. The lower third of the main bile duct and middle third of the main bile duct contained filling defect(s) thought to be a stone. The main bile duct was moderately dilated, with a stone causing an obstruction. The largest diameter was 10 mm. Biliary sphincterotomy was made with a monofilament Fusion OMNI sphincterotome using ERBE electrocautery. There was no post-sphincterotomy bleeding. To discover objects, the biliary tree was swept with a 15 mm balloon starting at the bifurcation. Four stones were removed. No stones remained. One 10 Fr by 7 cm biliary stent with a single external flap and a single internal flap was placed 7 cm into the common bile duct. Bile flowed through the stent. The stent was in good position. The total fluoroscopy exposure time was 50 seconds. Indomethacin 100 mg was given via suppository to decrease the risk of post-ERCP pancreatitis (PEP). The endoscope was withdrawn from the patient. Impression: - The major papilla appeared to be small. - Biliary papillary stenosis, benign. - A filling defect consistent with a stone was seen on the cholangiogram. - The entire main bile duct was moderately dilated, with a stone causing an obstruction. - The patient has had a cholecystectomy. - Choledocholithiasis was found. Complete removal was accomplished by biliary sphincterotomy and balloon extraction. - A biliary sphincterotomy was performed. - The biliary tree was swept. - One biliary stent was placed into the common bile duct. - Indomethacin given to decrease risk of post-ERCP pancreatitis. Recommendation: - Avoid aspirin and nonsteroidal anti-inflammatory medicines for 1 week. - Clear liquid diet today. - Repeat ERCP in 6 weeks to remove stent. - Use broad spectrum antibiotics for 7 days (Cipro). Mena Mcdowell D.O. Mena Mcdowell DO 11/15/2022 12:26:46 PM This report has been signed electronically. Note Initiated On: 11/15/2022 11:30 AM Number of Addenda: 0 I attest to the content of the Intraoperative Record and orders documented therein, exceptions below {[id number]}
--- NOTE | 2022-11-15 12:29 | Post Operative Brief Note ---
Immediate Post Op Note v1 Date of Surgery November 15, 2022 Pre & Post Diagnosis Operation Date: 11/15/22 10:35 Pre-Op Diagnosis: RUQ PAIN, TRANAMINITIS, POSSIBLE MICROLILTHIASIS A Post-Op Diagnosis: Gallstones, papillary stenosis I identified the patient and participated in the time-out.: Yes Procedure Operation Date: 11/15/22 10:35 Actual Procedures p Endoscopic Retrograde Cholangiopancreato with Stent Placement - Mena Mcdowell DO Surgeon Mena Mcdowell, DO Lining Mechanic none Estimated Blood Loss 0 Findings Consistent with Post-Op Diagnosis
--- NOTE | 2022-11-15 12:30 | Communication Note ---
Date of Service: November 15, 2022 Patient underwent ERCP for choledocholithiasis. The procedure was notable for several stones removed from the common bile duct in addition to stenosis of the distal common bile duct likely from inflammatory changes. A biliary sphincterotomy was performed, gallstone extraction performed and a stent was placed to the bile duct. Recommendations patient may have clear liquids today Ciprofloxacin twice daily for 7 days avoid nonsteroidals for 1 week repeat ERCP for stent extraction and 6 to 8 weeks Continue IV hydration overnight If patient doing well on Saturday she may be discharged home
--- NOTE | 2022-11-15 13:20 | Fluoroscopy Report ---
INTRAOPERATIVE RADIOGRAPHS CLINICAL HISTORY: ERCP. Fluoroscopy time: 50 seconds. FINDINGS: 17 spot fluoroscopic images of the upper quadrant from an ERCP procedure are presented. Cor relation is made with abdominal CT dated 11/14/2022. Cholecystectomy clips are noted. A catheter is p laced in the common bile duct which is opacified with contrast. The common duct is mildly dilated. In traluminal filling defects likely represent choledocholithiasis. Gas bubbles may also be present. A b alloon sweep of the duct is performed. Intraluminal filling defects have resolved with final image. A common bile duct stent is placed. No intrahepatic biliary ductal dilatation is seen. IMPRESSION: Intraoperative ERCP images with common bile duct stent placement as above. See operative report for detailed findings. Electronically signed by: Chaz Newman M.D. 11/15/2022 1:18 PM
--- NOTE | 2022-11-15 13:42 | Anesthesiology Progress Note ---
Date of Service November 15, 2022 Anesthesia Post Procedure Vital Signs Vital Signs: Temp Pulse Pulse Pulse Resp BP BP 11/15/22 13:15 36.9 C 75 16 138/92 11/15/22 13:00 69 16 150/89 H 11/15/22 12:45 37 C 68 16 142/82 H 11/15/22 12:35 66 14 126/90 11/15/22 12:27 36.8 C 82 16 137/93 11/15/22 10:36 36.7 C 16 11/15/22 07:57 36.7 C 64 16 11/14/22 23:12 36.7 C 76 16 11/14/22 22:48 36.7 C 76 16 11/14/22 21:36 66 20 11/14/22 18:35 36.7 C 85 18 143/105 H BP Pulse Ox O2 Del Method O2 Flow Rate 11/15/22 13:15 98 Room Air 11/15/22 13:00 96 Room Air 11/15/22 12:45 97 Room Air 11/15/22 12:35 100 Oxymask 5 11/15/22 12:27 100 Oxymask 5 11/15/22 10:36 139/98 100 Room Air 11/15/22 07:57 115/74 96 Room Air 11/14/22 23:12 132/88 95 Room Air 11/14/22 22:48 132/88 95 Room Air 11/14/22 21:36 180/121 H 100 Room Air 11/14/22 18:35 98 Room Air Pain Intensity Abdomen: Pain Intensity: 5 Transfer of Care Handoff Completed per policy Notes Mental Status: alert / awake / arousable and participated in evaluation Patient Amnestic to Procedure: Yes Nausea / Vomiting: adequately controlled Pain: adequately controlled Airway Patency, RR, SpO2: stable & adequate BP & HR: stable & adequate Hydration State: stable & adequate Anesthetic Complications: no major complications apparent and Pt Satisfied with anesthetic care
[2022-11-15] MEDS ORDERED: CIPROFLOXACIN / D5W 400 MG/200 ML BAG IV SCH (14:00)
[2022-11-15] MEDS: CIPROFLOXACIN / D5W 400 MG/200 ML BAG IV SCH ×2 (14:01→23:55)
--- NOTE | 2022-11-15 15:08 | Electrocardiogram Report ---
Test Reason : Blood Pressure : / mmHG Vent. Rate : 074 BPM Atrial Rate : 074 BPM P-R Int : 160 ms QRS Dur : 072 ms QT Int : 396 ms P-R-T Axes : 022 013 021 degrees QTc Int : 439 ms Poor data quality, interpretation may be adversely affected Normal sinus rhythm Normal ECG No previous ECGs available Confirmed by Darell Baxter ([id number]) on 11/15/2022 3:07:26 PM Referred By: REFERRED SELF Confirmed By:Darell Baxter
[2022-11-16] MEDS: LACTATED RINGER'S 1,000 ML IV SCH (05:10)
[2022-11-16 06:39] LABS: Hematocrit (blood only) 35.7 % (34.1-44.9); Hemoglobin 12.2 g/dl (12.0-16.0); Mean Corpuscular Hemoglobin 29.6 pg (25.0-34.0); Mean Corpuscular Hgb Conc 34.2 g/dL (32.0-36.0); Mean Corpuscular Volume 86.7 fL (80.0-100.0); Platelet Count 337 K/uL (130-400); RDW Coefficient of Variation 12.1 % (11.5-14.5); RDW Standard Deviation 38.7 fL (36.4-46.3); Red Blood Count 4.12 M/uL (3.93-5.22); White Blood Count 9.71 K/ul (4.8-10.8)
[2022-11-16 07:09] LABS: Albumin Level 3.7 gm/dl (3.4-5.0); BUN Creatinine Ratio 10.2 (10-20); Bilirubin,Total 1.4 mg/dl (0.2-1.0); Calcium 8.7 mg/dl (8.5-10.1); Creatinine Clr Calc Pharmacy 188.2 ml/min; Est GFR (African American) 146.6 ml/min; Est GFR (Non-African American) 126.5 ml/min; Globulin 3.6 gm/dl (2.5-4.0); Potassium 3.7 mmol/L (3.5-5.1); Total Protein 7.3 gm/dl (6.0-8.3)
--- NOTE | 2022-11-16 09:04 | Gastroenterology Progress Note ---
Date of Service November 16, 2022 Assessment & Plan (1) Choledocholithiasis: Plan 27 year old admitted with pain, nausea, imaging showing CBD stone and labs showing elevated Tbili 3.8, AST 246, ALT 377, ALKP 218 s/p ERCP w/ stones removed, stent placed due to benign stenosis of the distal CBD due to inflammation. Advance diet as tolerated Ciprofloxacin twice daily for 7 days avoid nonsteroidals for 1 week repeat ERCP for stent extraction and 6 to 8 weeks No GI contraindication to discharge home Thank you for allowing us to participate in the care of this patient. Please call with any acute changes, questions or concerns. Please see addendum below with additional recommendation from my supervising physician. Admission and Anticipated Discharge Date Admission Date: November 14, 2022 Supervising Physician Co-Signing Physician Notes Saw and evaluated the patient. The patient underwent ERCP yesterday for complications related to choledocholithiasis. Of note her liver enzymes seem to be improving today the patient is feeling well. Complete a 7 day course of Ciprofloxacin ERCP for stent removal in 6 to 8 weeks Please call with any questions / GI to sign off. Subjective Pt was seen and evaluated, chart reviewed. S/P ERCP, stones removed, stent placed. Feeling well, wants to advance diet, go home. Tbili improved. AST/ALT/ALKP unchanged. Review of Systems Review of Systems: All systems reviewed & are unremarkable except as noted in HPI & below Physical Exam Constitutional: WD/WN, vitals as above Respiratory: normal respiratory effort, lungs clear to auscultation Cardiovascular: Rate/Rhythm: regular rate and regular rhythm Gastrointestinal (Abdomen): normal bowel sounds, soft, nontender, no hepatosplenomegaly Skin: no rashes, warm and dry Results & Data ([facility]) Vital Signs (Past 12 Hours) Vital Signs Temp Pulse Resp BP Pulse Ox O2 Del Method 11/16/22 07:48 36.7 C 68 16 123/81 99 Room Air 11/15/22 23:52 36.7 C 61 16 119/77 98 Room Air Laboratory Results 11/16/22 11/16/22 11/15/22 Range/Units 05:34 05:34 10:48 WBC 9.71 (4.8-10.8) K/ul RBC 4.12 (3.93-5.22) M/uL Hgb 12.2 (12.0-16.0) g/dl Hct 35.7 (34.1-44.9) % MCV 86.7 (80.0-100.0) fL MCH 29.6 (25.0-34.0) pg MCHC 34.2 (32.0-36.0) g/dL RDW Std Deviation 38.7 (36.4-46.3) fL RDW Coeff of Jerri 12.1 (11.5-14.5) % Plt Count 337 (130-400) K/uL MPV 11.0 (9.4-12.3) fL Sodium 140 (136-145) mmol/L Potassium 3.7 (3.5-5.1) mmol/L Chloride 103 (98-107) mmol/L Carbon Dioxide 25 (21-32) mmol/L Anion Gap 12 H (3-11) BUN 6 (6-23) mg/dl Creatinine 0.59 L (0.6-1.2) mg/dl Est Cr Clr Drug Dosing 188.2 ml/min Est GFR ( Amer) 146.6 ml/min Est GFR (Non-Af Amer) 126.5 ml/min BUN/Creatinine Ratio 10.2 (10-20) Glucose 108 H (70-99(Fasting)) mg/dl Calcium 8.7 (8.5-10.1) mg/dl Total Bilirubin 1.4 H D (0.2-1.0) mg/dl AST 260 H (13-39) U/L ALT 402 H (7-52) U/L Alkaline Phosphatase 186 H (34-104) U/L Total Protein 7.3 (6.0-8.3) gm/dl Albumin 3.7 (3.4-5.0) gm/dl Globulin 3.6 (2.5-4.0) gm/dl Albumin/Globulin Ratio 1.0 (0.9-2) POC Ur Test NEG (NEG)
[2022-11-16] MEDS ORDERED: PANTOprazole 40 MG TAB PO SCH (11:00)
[2022-11-16] MEDS: CETIRIZINE HCL 10 MG TABLET PO SCH (11:52)
[2022-11-16] MEDS: ORAL CONTRACEPTIVE~ORDER AWAITING ACTION SCH (11:55)
--- NOTE | 2022-11-16 13:19 | Discharge Summary ---
Date of Service November 16, 2022 Admission HPI Per Admitting Provider 27-year-old female with history of cholecystectomy presents to the ER with chest pain. This is been going on for about 2 weeks. Its most worse postprandially. Her initial cardiac evaluation with EKG and troponin is unremarkable. There is a pleuritic sensations of the pain CT scan is concerning for possible microlithiasis or retained stone in the common bile duct. Patient has elevation of her transaminases and bilirubin but not her lipase She is mildly hypertensive at the emergency department Admission Exam Per Admitting Provider The patient appeared well nourished and normally developed. Vital signs as documented. Head exam is normocephalic atraumatic Neck is without JVD, thyromegaly, or carotid bruits. Lungs are clear to auscultation, no focal loss of breath sounds Cardiac exam, Rhythm is regular.. No murmurs, rubs or gallops. Abdominal exam reveals normal bowel sounds, tenderness throughout the upper abdomen worse in the epigastrium Extremities are nonedematous and both pedal pulses are present Neurologic exam is alert and oriented, no focal loss of strength or sensation Skin is without bruises or rashes Psychologically is without concerns for anxiety or depression.. Principal Diagnosis choledocholithiasis Discharge Exam Constitutional WD/WN, vitals as above ENMT external ear and nose normal, oropharynx normal Neck trachea midline, no thyromegaly Respiratory normal respiratory effort, lungs clear to auscultation Cardiovascular RRR, no murmur, no edema Gastrointestinal (Abdomen) Inspection/Auscultation: abdomen normal to inspection, normal bowel sounds and + abdominal surgical scar Percussion/Palpation: abdomen soft; abdomen nontender, no guarding, abdomen not rigid and no hepatosplenomegaly Skin no rashes, warm and dry Neurologic patellar DTR's 2+ bilat, sensation intact and PERRL, EOMI, accommodation nl, no face palsy, no dysarthria Psychiatric A+Ox3, euthymic affect Discharge Data Allergies Allergy/AdvReac Type Severity Reaction Status Date / Time No Known Allergies Allergy Verified 11/14/22 21:05 Consultations 11/14/22 20:45 ED Decision to Admit Stat 11/14/22 21:12 ED Decision to Admit Stat 11/14/22 22:48 Consult Gastroenterology Routine Procedures Performed Operation Date: 11/15/22 10:35 Actual Procedures p Endoscopic Retrograde Cholangiopancreato with Stent Placement - Mena Mcdowell, Ordered Studies 11/14/22 19:46 CT Abd and Pelvis [CT abd pelvis IV con only] Stat 11/15/22 [place] ERCP biliary ductal Routine Hospital Course (1) Transaminitis: Patient has mild elevation transaminitis and bilirubin with dilated distal common bile duct with stones within seen on CT scan. She has a history of a cholecystectomy. Patient had ERCP 11/15/2022 revealing choledocholithiasis, complete removal was done with sphincterotomy and balloon extraction with one stent placed in the CBD Patient will need repeat ERCP in 6 weeks for stent removal Bilirubin significantly improved after ERCP Patient had no further abdominal pain or nausea or vomiting She tolerated clear liquid diet yesterday and tolerated a low fat lunch today (2) Choledocholithiasis: S/P ERCP - Complete removal was done with biliary sphincterotomy and balloon extraction. One biliary stent was placed and will need repeat ERCP in 6 weeks for removal of stent Cipro for a total of 7 days (3) Hepatic steatosis: Hepatic steatosis noted on imaging we will provide counseling or referral to primary care Discussed diet and weight loss with patient and she will follow up with her PCP upon discharge regarding this further (4) Breast mass: Incidentally noted right breast mass with recommendations to follow-up with the breast center for possible mammography ultrasound. Patient states she felt a right breast lump in the past while doing a self breast exam. Advised patient of the incidental CT finding and the need to have a mammogram/Ultrasound (5) Foot drop, right: Patient has chronic right foot drop from a herniated nucleus pulposus and had surgery 6 months ago. She uses a cane for ambulation and per patient is to see a field advisor in the near future. Total Time Total Time Spent Total Time Spent (In Minutes): 30 Discharge Plan Discharge Items Patient Disposition: Home - Self-Care Reason For Visit: RUQ PAIN, TRANAMINITIS, POSSIBLE MICROLILTHIASIS A Discharge Diagnosis: choledocholithiasis Hepatic steatosis Right Breast mass Condition on Discharge: Good Activity: Resume your previous activity Driving/Machine Use: Resume 1 day after discharge Weightbearing: Full weightbearing Non-emergency contact: Primary Care Provider Call non-emergency contact if: you have any medication questions, your symptoms worsen and your temperature is above 101 Follow-up/Referrals: Byron Alba III, CRNP [Primary Care Provider] - Diet: Low Fat Addtl Attending Provider Instructions: You were admitted with abdominal pain and found to have a stone in your common bile duct (choledocholithiasis) This was found by elevated liver enzymes on a blood test as well as seen on the CT images of your abdomen. You will need to take an antibiotic called Cipro 500mg one pill 2 times per day for 7 days You will need a repeat ERCP in 6 weeks for stent removal Also incidentally seen on the CT scan was a right breast mass and fatty liver (hepatic steatosis) For the right breast mass you will need to have a mammogram and possibly an U/S of your breast. You should follow up with your primary care physician to schedule this or with your director family. For the fatty liver treatment is exercise, following a high fiber low fat diet and weight loss. Pending Studies at Discharge: No Stand-Alone Forms: [facility] Medications and DC Order Prescriptions: New ciprofloxacin HCl 500 mg tablet 500 mg PO BID Qty: 14 0RF Continued albuterol sulfate 90 mcg/actuation aerosol powdr breath activated 2 inh inhalation Q6H PRN (Reason: Shortness Of Breath) Nauzene Upset Stomach-Nausea 230 mg tablet,chewable 230 mg PO DIRECTED PRN (Reason: NAUSEA/UPSET STOMACH) multivitamin Tablet 1 tab PO DAILY cetirizine [Zyrtec] 10 mg Tablet 10 mg PO DAILY norethindrone-e.estradiol-iron [Fela Fe 12/21 (28)] 1 mg-20 mcg (21)/75 mg (7) tablet 1 tab PO DAILY omeprazole 10 mg Capsule,Delayed Release(Dr/Ec) 10 mg PO DAILY Discharge Orders: Discharge Order (Routine); Ordered 11/16/22 Ordered By: Lashonda Keen/Other Patient Handouts: NAFLD, Clinical Breast Exam Admission Data Admit Date/Time: 11/14/22 20:58 Attending Provider: Win Ford Admit Provider: Bhavesh Calvillo Primary Care Provider: Byron Alba III Other Providers: Bhavesh Calvillo ; Linda Pacheco Coding Level of Care Code OBSERV/HOSP SAME DATE LVL 3 History Detailed Exam Expanded Problem Focused Medical Decision Making Moderate Complexity Diagnoses Transaminitis R74.01 Choledocholithiasis K80.50 Hepatic steatosis K76.0 Breast mass N63.0 Foot drop, right M21.371 Time Spent (min) 30
== END 2022-11-16 14:28 | disposition home or self-care (01) ==
LOC: 3E 18:31 → ED 18:31 → SUATTDRO 20:58 → 3E 22:35